=== PATIENT | female | born 1945 | race Caucasian/White ===

== ENCOUNTER 2019-03-25 16:45 | Inpatient (IN) | payer OTHER ==
[~2019-03-25] VITALS: Ht 162.6 cm; Wt 87.1 kg
[2019-03-25 16:52] VITALS: BP_SYST 101
[2019-03-25 17:46] LABS: BILIRUBIN,URINE NEGATIVE (NEGATIVE); BLOOD, URINE NEGATIVE (NEGATIVE); CLARITY/URINE CLEAR (CLEAR); COLOR,URINE YELLOW (YELLOW); GLUCOSE,URINE NEGATIVE (NEGATIVE); KETONES,URINE NEGATIVE (NEGATIVE); LEUKOCYTE ESTERASE ,URINE 1+ (NEGATIVE); NITRITE, URINE NEGATIVE (NEGATIVE); PROTEIN URINE NEGATIVE (NEGATIVE); UROBILINOGEN,URINE 0.2 (0.2-1.0)
[2019-03-25 17:59] LABS: RBC,URINE 0-3 /HPF (0-3)
[2019-03-25 18:00] LABS: BASOPHILS % (AUTO) 0.6 % (0.0-2.0); EOSINOPHILS % (AUTO) 0.4 % (0.0-4.0); HEMATOCRIT 31.7 % (36-48); LYMPHOCYTES # (AUTO) 2.1 K/uL (1.0-5.5); LYMPHOCYTES % (AUTO) 28.8 % (20.5-51.5); MEAN CORPUSCULAR HEMOGLOBIN 29 pg (27-31); MEAN CORPUSCULAR HGB CONC 32 % (32-36); MEAN CORPUSCULAR VOLUME 92 fL (79.0-98.0); MONOCYTES # (AUTO) 0.7 K/uL (0.0-1.0); MONOCYTES % (AUTO) 10.2 % (1.7-9.3); NEUTROPHILS # (AUTO) 4.4 K/uL (1.8-7.7); PLATELET COUNT (AUTO) 211 K/uL (130-430); RED BLOOD CELL COUNT(AUTO) 3.45 MIL/uL (4.2-6.2); RED CELL DISTRIBUTION WIDTH 21.8 % (9.0-15.0); WHITE BLOOD COUNT (AUTO) 7.3 K/uL (4.8-10.8)
[2019-03-25 18:00] LABS: BACTERIA,URINE MODERATE /HPF (None Seen); FINE GRANULAR CASTS,URINE 0-10 /LPF (None Seen); MUCUS,URINE 1+ /LPF (None Seen)
[2019-03-25 18:02] LABS: BARBITURATE, URINE NEGATIVE (NEG <=200); BENZODIAZEPINE, URINE NEGATIVE (NEG <=150); CANNABINOID, URINE NEGATIVE (NEG <=50); COCAINE, URINE NEGATIVE (NEG <=150); METHAMPHETAMINES SCREEN,URINE NEGATIVE (NEG <=500); OPIATE, URINE NEGATIVE (NEG <=100); PHENCYCLIDINE SCREEN,URINE NEGATIVE (NEG <=25); UR TRICYCLIC ANTIDEPRESSANTS NEGATIVE (NEG <=300); URINE AMPHETAMINE NEGATIVE (NEG <=500); URINE METHADONE NEGATIVE (NEG <=200); URINE OXYCODONE SCREEN NEGATIVE (NEG <=100); URINE PROPOXYPHENE SCREEN NEGATIVE (NEG <=300)
[2019-03-25] MEDS ORDERED: cefTRIAXone 1 GM IVPB PREMIX 50 ML IV ONE ×2 (18:30)
[2019-03-25 18:32] LABS: INR 1.7 (0.8-1.2); PROTHROMBIN TIME 17.4 SECS (9.5-12.5)
[2019-03-25 18:52] LABS: CALCIUM 7.5 mg/dL (8.4-11.0); CREATININE 1.03 mg/dL (0.55-1.30); GLUCOSE 109 mg/dL (70-99); UREA NITROGEN, BLOOD 19 mg/dL (8-21)
[2019-03-25 19:08] LABS: ALANINE AMINOTRANSFERASE 24 U/L (12-78); ALBUMIN 1.8 g/dL (3.4-4.8); ASPARTATE AMINOTRANSFERASE 26 U/L (10-37); FREE T4 (FREE THYROXINE) 1.3 ng/dL (0.6-1.6); TOTAL BILIRUBIN 0.8 mg/dL (0.0-1.0)
[2019-03-25 19:10] LABS: ALCOHOL, BLOOD < 3 mg/dL (<10); CHLORIDE 112 mmol/L (98-107); POTASSIUM 4.1 mmol/L (3.5-5.1); SODIUM SERUM 144 mmol/L (136-145)
[2019-03-25 19:11] LABS: ANION GAP 7 (5-15)
[2019-03-25] MEDS ORDERED: LACTULOSE 20 GM/30 ML UDC PO ONE ×2 (19:15→22:00)
[2019-03-25 20:25] VITALS: BP_SYST 105
[2019-03-25] MEDS ORDERED: ONDANSETRON HCL 4 MG/2 ML VIAL IVP PRN (21:45)
[2019-03-25] MEDS ORDERED: ALBUTEROL SULFATE 0.083% 2.5 MG/3 ML VIAL.NEB INH PRN (21:45)
[2019-03-25 21:52] VITALS: BP_SYST 105
[2019-03-25] MEDS ORDERED: RIFAXIMIN 550 MG TABLET PO ONE (22:00)
[2019-03-25 23:45] VITALS: BP_SYST 116
[2019-03-26 00:16] VITALS: BP_SYST 95
[2019-03-26 07:10] LABS: BASOPHILS % (AUTO) 0.7 % (0.0-2.0); EOSINOPHILS # (AUTO) 0.1 K/uL (0.0-0.4); HEMATOCRIT 29.7 % (36-48); HEMOGLOBIN 9.5 g/dL (12.0-16.0); LYMPHOCYTES # (AUTO) 1.6 K/uL (1.0-5.5); LYMPHOCYTES % (AUTO) 29.4 % (20.5-51.5); MEAN CORPUSCULAR HEMOGLOBIN 29 pg (27-31); MEAN CORPUSCULAR HGB CONC 32 % (32-36); MEAN CORPUSCULAR VOLUME 92 fL (79.0-98.0); MONOCYTES # (AUTO) 0.5 K/uL (0.0-1.0); NEUTROPHILS # (AUTO) 3.2 K/uL (1.8-7.7); NEUTROPHILS % (AUTO) 58.9 % (40.0-70.0); PLATELET COUNT (AUTO) 139 K/uL (130-430); RED BLOOD CELL COUNT(AUTO) 3.24 MIL/uL (4.2-6.2)
[2019-03-26 07:21] LABS: WHITE BLOOD COUNT (AUTO) 5.4 K/uL (4.8-10.8)
[2019-03-26 07:25] LABS: ALANINE AMINOTRANSFERASE 25 U/L (12-78); ALBUMIN 1.6 g/dL (3.4-4.8); ASPARTATE AMINOTRANSFERASE 28 U/L (10-37); CALCIUM 7.8 mg/dL (8.4-11.0); CHLORIDE 111 mmol/L (98-107); CREATININE 1.12 mg/dL (0.55-1.30); GLUCOSE 85 mg/dL (70-99); POTASSIUM 3.6 mmol/L (3.5-5.1); SODIUM SERUM 141 mmol/L (136-145); TOTAL BILIRUBIN 0.7 mg/dL (0.0-1.0); UREA NITROGEN, BLOOD 20 mg/dL (8-21)
[2019-03-26 07:29] LABS: ANION GAP < 3 (5-15)
[2019-03-26 07:45] VITALS: BP_SYST 107
[2019-03-26] MEDS: LACTULOSE 20 GM/30 ML UDC PO SCH ×4 (09:35→21:00)
[2019-03-26] MEDS: RIFAXIMIN 550 MG TABLET PO SCH ×2 (09:35→21:19)
[2019-03-26] MEDS ORDERED: FUROSEMIDE 40 MG/4 ML VIAL IVP ONE (09:45)
[2019-03-26] MEDS ORDERED: POTA20TA83 PO (10:40)
[2019-03-26] MEDS ORDERED: FURO-150 PO (10:40)
[2019-03-26] MEDS ORDERED: LEVO200T PO (10:40)
[2019-03-26] MEDS ORDERED: LEVOTHYROXINE SODIUM 0.1 MG TABLET PO ONE (11:00)
[2019-03-26 11:20] VITALS: BP_SYST 126
[2019-03-26 15:24] VITALS: BP_SYST 143
[2019-03-26 17:03] LABS: TOTAL IRON BIND. CAPACITY 122 ug/dL (250-450)
[2019-03-26] MEDS: FUROSEMIDE 40 MG/4 ML VIAL IVP SCH (21:00)
[2019-03-26] MEDS ORDERED: cefTRIAXone 1 GM IVPB PREMIX 50 ML IV SCH (21:00)
[2019-03-26 21:02] VITALS: BP_SYST 109
[2019-03-27 00:44] VITALS: BP_SYST 98
[2019-03-27 06:12] LABS: BASOPHILS % (AUTO) 0.6 % (0.0-2.0); EOSINOPHILS # (AUTO) 0.1 K/uL (0.0-0.4); EOSINOPHILS % (AUTO) 0.9 % (0.0-4.0); HEMOGLOBIN 10.1 g/dL (12.0-16.0); LYMPHOCYTES # (AUTO) 3.3 K/uL (1.0-5.5); LYMPHOCYTES % (AUTO) 37.4 % (20.5-51.5); MEAN CORPUSCULAR HEMOGLOBIN 30 pg (27-31); MEAN CORPUSCULAR HGB CONC 33 % (32-36); MEAN CORPUSCULAR VOLUME 91 fL (79.0-98.0); MONOCYTES # (AUTO) 0.7 K/uL (0.0-1.0); MONOCYTES % (AUTO) 7.9 % (1.7-9.3); NEUTROPHILS # (AUTO) 4.7 K/uL (1.8-7.7); NEUTROPHILS % (AUTO) 53.2 % (40.0-70.0); PLATELET COUNT (AUTO) 213 K/uL (130-430); RED CELL DISTRIBUTION WIDTH 20.8 % (9.0-15.0); WHITE BLOOD COUNT (AUTO) 8.9 K/uL (4.8-10.8)
[2019-03-27] MEDS ORDERED: LEVOTHYROXINE SODIUM 0.1 MG TABLET PO SCH (07:00)
[2019-03-27 07:01] LABS: ALANINE AMINOTRANSFERASE 28 U/L (12-78); ALBUMIN 1.9 g/dL (3.4-4.8); ASPARTATE AMINOTRANSFERASE 32 U/L (10-37); CALCIUM 7.8 mg/dL (8.4-11.0); CHLORIDE 108 mmol/L (98-107); CREATININE 1.07 mg/dL (0.55-1.30); GLUCOSE 83 mg/dL (70-99); POTASSIUM 3.9 mmol/L (3.5-5.1); SODIUM SERUM 139 mmol/L (136-145); TOTAL BILIRUBIN 0.8 mg/dL (0.0-1.0); UREA NITROGEN, BLOOD 19 mg/dL (8-21)
[2019-03-27 07:06] LABS: INR 1.8 (0.8-1.2); PROTHROMBIN TIME 17.9 SECS (9.5-12.5)
[2019-03-27 07:08] LABS: ANION GAP < 3 (5-15)
[2019-03-27 07:45] VITALS: BP_SYST 122
[2019-03-27 08:10] LABS: HEPATITIS A AB, IgM Negative (Negative); HEPATITIS B CORE AB, IgM Negative (Negative); HEPATITIS B SURFACE AG Negative (Negative)
[2019-03-27] MEDS: LACTULOSE 20 GM/30 ML UDC PO SCH ×2 (09:00→13:00)
[2019-03-27] MEDS: RIFAXIMIN 550 MG TABLET PO SCH (10:12)
[2019-03-27] MEDS: FUROSEMIDE 40 MG/4 ML VIAL IVP SCH (10:13)
[2019-03-27 12:00] VITALS: BP_SYST 112
[2019-03-27 13:06] LABS: AFP, TUMOR MARKER 3.1 ng/mL (0.0-8.3); FERRITIN 34 ng/mL (15-150)
[2019-03-27 14:29] VITALS: BP_SYST 112
[2019-03-27] MEDS ORDERED: SPIR100T PO ×2 (14:40→14:44)
[2019-03-27] MEDS ORDERED: LACT10SO7 PO (14:44)
[2019-03-28 05:10] LABS: ALPHA-1-ANTITRYPSIN, S 101 mg/dL (90-200); CERULOPLASMIN 10.8 mg/dL (19.0-39.0)
[2019-03-28 13:07] LABS: ANTI-SMOOTH MUSCLE AB 11 Units (0-19)
[2019-03-28 19:13] LABS: ANTI NUCLEAR AB WITH REFLEX Negative (Negative)
[2019-03-29 13:07] LABS: LIVER-KIDNEY MICROSOMAL AB 1.7 Units (0.0-20.0)
== END 2019-03-27 17:48 | disposition home or self-care (01) | DRG 442 ==
LOC: SED 16:45 → STU 19:36 → SMU 20:16 → STU 20:16 → SMU 03-26 15:01
PROVIDERS: ADMIT Internal Medicine; ATTEND Internal Medicine
DX: K72.90 Hepatic failure, unspecified without coma (principal); N39.0 Urinary tract infection, site not specified; R18.8 Other ascites; E44.0 Moderate protein-calorie malnutrition; R65.10 Systemic inflammatory response syndrome (SIRS) of non-infectious origin without acute organ dysfunction; K74.60 Unspecified cirrhosis of liver; Z96.643 Presence of artificial hip joint, bilateral; E88.09 Other disorders of plasma-protein metabolism, not elsewhere classified; Z79.899 Other long term (current) drug therapy; Z88.0 Allergy status to penicillin; Z90.49 Acquired absence of other specified parts of digestive tract
CPT/HCPCS: 36415; 70450-TC; 71045; 76700-TC; 80053; 80074; 80307; 81000-TC; 82103; 82105; 82140-TC; 82390; 82728; 83516; 83540-TC; 83550-TC; 83605; 83880; 84439; 84484; 85025; 85610-TC; 86038; 86376; 87040-TC; 87086; 92507-GN; 92523; 93005; 93970; 97110-GP; 97116-GP; 97530-GP; 99285; G0378; G0482; J0696; J1940

== ENCOUNTER 2019-05-01 14:36 | Inpatient (IN) | payer OTHER ==
[2019-05-01] VITALS (7 sets, daily range): BP systolic 83–119
[~2019-05-01] VITALS: Ht 162.6 cm; Wt 88.0 kg
[~2019-05-01 14:36] MED LIST: FURO-150 PO; LACT10SO7 PO; LEVO200T PO; POTA20TA83 PO; SPIR100T PO
--- NOTE | 2019-05-01 14:50 | NUR ---
BROUGHT BACK TO BED #3 VIA WHEELCHAIR AND TRIAGED. REPORT GIVEN TO TWAN
--- NOTE | 2019-05-01 15:00 | NUR ---
pt was bib her daughter from home w/ c/o of extremity swelling. Pt is AAO x 3. Is unable to ambulate at the moment d/t increasing swelling. Will continue to monitor.
--- NOTE | 2019-05-01 15:02 | NUR ---
ER at bedside examining patient.
[2019-05-01] MEDS ORDERED: FUROSEMIDE 40 MG/4 ML VIAL IVP ONE (15:45)
--- NOTE | 2019-05-01 15:52 | NUR ---
# 22 gauge angiocath placed to right hand. Use of asceptic technique. Opsite placed over site. Blood return noted. Blood for lab drawn from site. Flushed with 10 cc of normal saline. No evidence of infiltration noted. Patient tolerated well.
[2019-05-01 16:17] LABS: INR 1.7 (0.8-1.2)
[2019-05-01 16:20] LABS: PROTHROMBIN TIME 17.1 SECS (9.5-12.5)
--- NOTE | 2019-05-01 16:20 | NUR ---
Urine sample obtained and sent to the lab
[2019-05-01 16:28] LABS: BASOPHILS % (AUTO) 0.2 % (0.0-2.0); EOSINOPHILS % (AUTO) 0.3 % (0.0-4.0); HEMATOCRIT 28.2 % (36-48); HEMOGLOBIN 9.1 g/dL (12.0-16.0); LYMPHOCYTES # (AUTO) 1.2 K/uL (1.0-5.5); LYMPHOCYTES % (AUTO) 17.4 % (20.5-51.5); MEAN CORPUSCULAR HEMOGLOBIN 30 pg (27-31); MEAN CORPUSCULAR HGB CONC 32 % (32-36); MEAN CORPUSCULAR VOLUME 92 fL (79.0-98.0); MONOCYTES # (AUTO) 0.4 K/uL (0.0-1.0); MONOCYTES % (AUTO) 5.8 % (1.7-9.3); NEUTROPHILS # (AUTO) 5.1 K/uL (1.8-7.7); NEUTROPHILS % (AUTO) 76.3 % (40.0-70.0); PLATELET COUNT (AUTO) 106 K/uL (130-430); RED BLOOD CELL COUNT(AUTO) 3.06 MIL/uL (4.2-6.2); RED CELL DISTRIBUTION WIDTH 16.1 % (9.0-15.0); WHITE BLOOD COUNT (AUTO) 6.7 K/uL (4.8-10.8)
[2019-05-01 16:31] LABS: ANION GAP 7 (5-15); CALCIUM 8.4 mg/dL (8.4-11.0); CHLORIDE 112 mmol/L (98-107); CREATININE 4.44 mg/dL (0.55-1.30); GLUCOSE 91 mg/dL (70-99); SODIUM SERUM 134 mmol/L (136-145); UREA NITROGEN, BLOOD 29 mg/dL (8-21)
[2019-05-01 16:43] LABS: ALANINE AMINOTRANSFERASE 36 U/L (12-78); ALBUMIN 1.7 g/dL (3.4-4.8); ASPARTATE AMINOTRANSFERASE 59 U/L (10-37); TOTAL BILIRUBIN 1.2 mg/dL (0.0-1.0)
[2019-05-01 16:44] LABS: POTASSIUM 7.1 mmol/L (3.5-5.1)
[2019-05-01 16:56] LABS: BILIRUBIN,URINE NEGATIVE (NEGATIVE); CLARITY/URINE HAZY (CLEAR); COLOR,URINE YELLOW (YELLOW); GLUCOSE,URINE NEGATIVE (NEGATIVE); KETONES,URINE NEGATIVE (NEGATIVE); LEUKOCYTE ESTERASE ,URINE 2+ (NEGATIVE); NITRITE, URINE NEGATIVE (NEGATIVE); PROTEIN URINE NEGATIVE (NEGATIVE); UROBILINOGEN,URINE 0.2 (0.2-1.0)
[2019-05-01] MEDS ORDERED: DEXTROSE 50% JECT 50 ML DISP.SYRIN IVP ONE (17:00)
[2019-05-01] MEDS ORDERED: SODIUM BICARBONATE 8.4% JECT 50 MEQ/50 ML SYRINGE IVP ONE (17:00)
[2019-05-01] MEDS ORDERED: INSULIN REGULAR, HUMAN 10 UNITS/0.1 ML INJ IVP ONE (17:00)
[2019-05-01 17:06] LABS: BLOOD, URINE TRACE (NEGATIVE)
--- NOTE | 2019-05-01 17:15 | NUR ---
Bicard 50 mEq, D50 25mg, and regular insulin 8 units given for K 7.1. Will reassess.
[2019-05-01] MEDS ORDERED: INSULIN REGULAR, HUMAN 10 UNITS/0.1 ML INJ ONE (17:20)
--- NOTE | 2019-05-01 17:23 | NUR ---
Medication reconciliation completed with information provided by the pt's daughter. Any prior medication reconciliation on file was reviewed and corrected.
[2019-05-01 17:28] LABS: BACTERIA,URINE MANY /HPF (None Seen); WBC,URINE 20-50 /HPF (0-3)
[2019-05-01] MEDS ORDERED: LACTULOSE 20 GM/30 ML UDC PO ONE (17:45)
[2019-05-01] MEDS ORDERED: SODIUM POLYSTYRENE SULFONATE 15 GM/60 ML UDBTL PO ONE (18:15)
[2019-05-01] MEDS ORDERED: LEVOFLOXACIN 250 MG/D5W 50 ML IV ONE ×2 (18:15→21:30)
[2019-05-01] MEDS ORDERED: FUROSEMIDE 100 MG in D5W 90 ML IV ONE (18:15)
--- NOTE | 2019-05-01 19:30 | NUR ---
Patient will be admitted to care of ICU 8. A Will go to room . Belongings list completed. bedside report given to Julian BOURNE. IV is on the RAC 22g patient and flushing well. Pt left in stable condition
--- NOTE | 2019-05-01 19:35 | NUR ---
PM SHIFT ASSESSMENT Pt is alert and oriented. Pt is on RA, RR even and unlabored. IV to LAC22g, no signs of infiltration noted. Safety precautions in place, call light within reach. Will continue to monitor.
[2019-05-01] MEDS: SODIUM BICARBONATE 8.4% JECT 50 MEQ/50 ML SYRINGE IVP SCH ×3 (20:58→23:09)
[2019-05-01] MEDS: LACTULOSE 20 GM/30 ML UDC PO SCH (21:09)
--- NOTE | 2019-05-01 21:30 | NUR ---
DR FREDDIE Yost notified regarding Lasix order. Orders received. 1. Continue Lasix drip @ 8mg/hr 2. Albuterol Sulfate 0.083% 2.5mg/3ml vial. neb INH Q 6 Hr PRN wheezing/ SOB.
--- NOTE | 2019-05-01 21:50 | NUR ---
CONSULTATION PAGED/CALLED Reason for Consultation: Liver Cirrhosis Person Who was Notified: Eunice lo Consulting Physician: Dr Yost Occupational Medicine Specialist Specialty: Nephro Ordering Physician: Dr Yost
[2019-05-01 22:07] LABS: CALCIUM 8.2 mg/dL (8.4-11.0); CHLORIDE 114 mmol/L (98-107); CREATININE 4.33 mg/dL (0.55-1.30); GLUCOSE 63 mg/dL (70-99); SODIUM SERUM 138 mmol/L (136-145); UREA NITROGEN, BLOOD 29 mg/dL (8-21)
[2019-05-01 22:12] LABS: ANION GAP 6 (5-15)
[2019-05-01] MEDS ORDERED: FUROSEMIDE 40 MG/4 ML VIAL ONE (22:17)
[2019-05-01 22:20] LABS: POTASSIUM 6.7 mmol/L (3.5-5.1)
--- NOTE | 2019-05-01 22:22 | NUR ---
CONSULTATION PAGED/CALLED Reason for Consultation: lIVER Cirrhosis Person Who was Notified: Magui lo Consulting Physician: Dr Davison Jet Aircraft Servicer Specialty: GI Ordering Physician: Dr Yost
[2019-05-01] MEDS ORDERED: SODIUM POLYSTYRENE SULFONATE 15 GM/60 ML UDBTL PO SCH (23:45)
--- NOTE | 2019-05-01 23:45 | NUR ---
PADRON CATH: # 16 FR Padron catheter with 10 cc bulb inserted with use of sterile technique. Bulb inflated with 10 cc sterile water. Immediate return of 15cc cloudy yellow urine noted. Bedside drainage bag placed below level of bladder. Pt tolerated procedure well.
[2019-05-02] VITALS (25 sets, daily range): BP systolic 80–110
[2019-05-02] MEDS: SODIUM BICARBONATE 8.4% JECT 50 MEQ/50 ML SYRINGE IVP SCH ×2 (00:15→01:09)
--- NOTE | 2019-05-02 00:17 | NUR ---
DR FREDDIE Yost notified regarding low SBP. Orders received. 1. Start Levophed to keep SBP greater than 90.
--- NOTE | 2019-05-02 00:50 | NUR ---
IV PLACEMENT: # 20 gauge angiocath placed to RAC. Use of asceptic technique. Opsite placed over site. Blood return noted. Flushed with 10 cc of normal saline. No evidence of infiltration noted. Patient tolerated well.
[2019-05-02] MEDS: NOREPINEPHRINE BITARTRATE 4 MG in D5W 246 ML IV PRN ×2 (01:11→22:15)
[2019-05-02] MEDS ORDERED: NOREPINEPHRINE 4 MG/4 ML VIAL IV ONE ×2 (01:11→21:08)
[2019-05-02] MEDS ORDERED: SODIUM BICARBONATE 8.4% JECT 50 MEQ/50 ML SYRINGE ONE (01:18)
[2019-05-02] MEDS ORDERED: ALBUTEROL SULFATE 0.083% 2.5 MG/3 ML VIAL.NEB INH PRN (02:00)
[2019-05-02 05:32] LABS: BASOPHILS % (AUTO) 0.3 % (0.0-2.0); EOSINOPHILS % (AUTO) 0.3 % (0.0-4.0); HEMATOCRIT 26.3 % (36-48); HEMOGLOBIN 8.5 g/dL (12.0-16.0); LYMPHOCYTES # (AUTO) 1.2 K/uL (1.0-5.5); LYMPHOCYTES % (AUTO) 21.5 % (20.5-51.5); MEAN CORPUSCULAR HEMOGLOBIN 30 pg (27-31); MEAN CORPUSCULAR HGB CONC 32 % (32-36); MEAN CORPUSCULAR VOLUME 92 fL (79.0-98.0); MONOCYTES # (AUTO) 0.3 K/uL (0.0-1.0); MONOCYTES % (AUTO) 5.9 % (1.7-9.3); NEUTROPHILS # (AUTO) 4.1 K/uL (1.8-7.7); PLATELET COUNT (AUTO) 86 K/uL (130-430); RED BLOOD CELL COUNT(AUTO) 2.85 MIL/uL (4.2-6.2); RED CELL DISTRIBUTION WIDTH 16.6 % (9.0-15.0); WHITE BLOOD COUNT (AUTO) 5.8 K/uL (4.8-10.8)
[2019-05-02 05:56] LABS: ALANINE AMINOTRANSFERASE 31 U/L (12-78); ALBUMIN 1.5 g/dL (3.4-4.8); ANION GAP 7 (5-15); ASPARTATE AMINOTRANSFERASE 58 U/L (10-37); CALCIUM 8.4 mg/dL (8.4-11.0); CHLORIDE 116 mmol/L (98-107); CREATININE 4.46 mg/dL (0.55-1.30); GLUCOSE 106 mg/dL (70-99); SODIUM SERUM 143 mmol/L (136-145); TOTAL BILIRUBIN 1.2 mg/dL (0.0-1.0); UREA NITROGEN, BLOOD 29 mg/dL (8-21)
[2019-05-02 05:59] LABS: POTASSIUM 6.4 mmol/L (3.5-5.1)
[2019-05-02] MEDS ORDERED: FUROSEMIDE 100 MG in D5W 90 ML IV SCH ×3 (06:00→18:00)
[2019-05-02] MEDS: LEVOTHYROXINE SODIUM 0.15 MG TABLET PO SCH (06:19)
--- NOTE | 2019-05-02 07:25 | NUR ---
ENDORSEMENT Pt care endorsed to TAYLA Babin using nursing SBAR.
--- NOTE | 2019-05-02 07:30 | NUR ---
Opening Note Received plan of care via sbar from endorsing nurse Rachna BOURNE.
[2019-05-02] MEDS ORDERED: ALBUMIN HUMAN 25% 50 ML IV SCH (08:00)
[2019-05-02] MEDS ORDERED: SODIUM POLYSTYRENE SULFONATE 15 GM/60 ML UDBTL PO ONE ×2 (09:15→10:30)
--- NOTE | 2019-05-02 09:30 | NUR ---
Unable to administer meds due to availability in [facility]. Contacted pharmacy for assistance.
--- NOTE | 2019-05-02 10:01 | NUR ---
Nutrition Update Asaf Scale 14 noted. Pt admitted for ARF, hyperkalemia, liver cirrhosis. Diet: 2 gm Na BMI: 35.4 kg/m2 RD to follow per nutrition care standards.
--- NOTE | 2019-05-02 10:40 | NUR ---
CONSULTATION PAGED/CALLED Reason for Consultation: PLACEMENT OF HEMODIALYSIS ACCESS Person Who was Notified: JAMISON Consulting Physician: DR CISNEROS Principal Java Software Engineer Specialty: GEN SURG Ordering Physician: DR FRAZIER
[2019-05-02] MEDS: LACTULOSE 20 GM/30 ML UDC PO SCH ×4 (11:05→20:55)
[2019-05-02] MEDS: ALBUMIN HUMAN 25% 50 ML IV SCH ×6 (11:06→23:52)
--- NOTE | 2019-05-02 11:20 | NUR ---
Patient iv sites both occluded. Unable to flush either iv sites. Informed my charge nurse for assistance.
--- NOTE | 2019-05-02 11:47 | NUR ---
Called Dr. Huber and left message for call back in exchange.
--- NOTE | 2019-05-02 14:26 | NUR ---
Picc line nurse at bedside.
[2019-05-02] MEDS: LEVOFLOXACIN 250 MG/D5W 50 ML IV SCH (17:52)
--- NOTE | 2019-05-02 19:25 | NUR ---
PM SHIFT ASSESSMENT Pt is alert and oriented. Pt is on RA, RR even and unlabored. PICC to MARIO with IVF infusing, no signs of infiltration noted. Paula catheter in place, draining to gravity. Safety precautions in place, call light within reach. Will continue to monitor.
--- NOTE | 2019-05-02 19:35 | NUR ---
Closing Note: Provided plan of care via sbar to receiving nurse Rachna BOURNE.
[2019-05-02] MEDS ORDERED: HEPARIN SODIUM,PORCINE 5000 UNITS/ML VIAL ONE (19:52)
--- NOTE | 2019-05-02 19:55 | NUR ---
DIALYSIS CATHETER Dr. Dozier here for dialysis catheter placement. Time out done, right patient, right procedure, right site, allergies noted. Sterile field secured.
--- NOTE | 2019-05-02 21:15 | NUR ---
Dialysis nurse here for patients first dialysis session. Consent signed and in chart.
[2019-05-03] VITALS (24 sets, daily range): BP systolic 89–120
--- NOTE | 2019-05-03 00:35 | NUR ---
First dialysis session complete, 1,750ml out. Pt tolerated procedure well. Will continue to monitor.
[2019-05-03] MEDS: ALBUMIN HUMAN 25% 50 ML IV SCH ×2 (02:24→04:27)
[2019-05-03] MEDS: NOREPINEPHRINE BITARTRATE 4 MG in D5W 246 ML IV PRN ×4 (02:25→16:57)
[2019-05-03] MEDS ORDERED: NOREPINEPHRINE 4 MG/4 ML VIAL IV ONE ×2 (02:25→07:09)
[2019-05-03] MEDS ORDERED: LEVOTHYROXINE SODIUM 0.1 MG TABLET PO SCH (06:00)
[2019-05-03 06:13] LABS: ALANINE AMINOTRANSFERASE 24 U/L (12-78); ANION GAP 8 (5-15); ASPARTATE AMINOTRANSFERASE 34 U/L (10-37); CALCIUM 8.2 mg/dL (8.4-11.0); CHLORIDE 110 mmol/L (98-107); CREATININE 3.15 mg/dL (0.55-1.30); GLUCOSE 153 mg/dL (70-99); POTASSIUM 3.8 mmol/L (3.5-5.1); SODIUM SERUM 143 mmol/L (136-145); TOTAL BILIRUBIN 1.4 mg/dL (0.0-1.0); UREA NITROGEN, BLOOD 16 mg/dL (8-21)
[2019-05-03] MEDS: LEVOTHYROXINE SODIUM 0.15 MG TABLET PO SCH (06:44)
--- NOTE | 2019-05-03 07:20 | NUR ---
ENDORSEMENT Pt care endorsed to TAYLA Babin using nursing SBAR.
--- NOTE | 2019-05-03 07:43 | NUR ---
Opening Note: Received plan of care via sbar from endorsing nurse Rachna BOURNE.
[2019-05-03 07:47] LABS: BASOPHILS % (AUTO) 0.2 % (0.0-2.0); EOSINOPHILS % (AUTO) 0.1 % (0.0-4.0); LYMPHOCYTES # (AUTO) 0.9 K/uL (1.0-5.5); LYMPHOCYTES % (AUTO) 25.7 % (20.5-51.5); MEAN CORPUSCULAR HEMOGLOBIN 30 pg (27-31); MEAN CORPUSCULAR HGB CONC 33 % (32-36); MEAN CORPUSCULAR VOLUME 89 fL (79.0-98.0); MONOCYTES # (AUTO) 0.3 K/uL (0.0-1.0); MONOCYTES % (AUTO) 7.7 % (1.7-9.3); NEUTROPHILS # (AUTO) 2.2 K/uL (1.8-7.7); NEUTROPHILS % (AUTO) 66.3 % (40.0-70.0); PLATELET COUNT (AUTO) 50 K/uL (130-430); RED BLOOD CELL COUNT(AUTO) 2.18 MIL/uL (4.2-6.2); RED CELL DISTRIBUTION WIDTH 16.1 % (9.0-15.0); WHITE BLOOD COUNT (AUTO) 3.4 K/uL (4.8-10.8)
[2019-05-03 07:52] LABS: HEMOGLOBIN 6.5 g/dL (12.0-16.0)
[2019-05-03 07:53] LABS: HEMATOCRIT 19.4 % (36-48)
--- NOTE | 2019-05-03 07:56 | NUR ---
Received call from Lab for critical values. Called Dr. Huber left message for exchange for return call.
--- NOTE | 2019-05-03 08:15 | NUR ---
Received call back from Dr. Huber. Received orders for 1 unit of PRBC and morphine 2 mg IVP push PRN.
[2019-05-03] MEDS: LACTULOSE 20 GM/30 ML UDC PO SCH ×4 (08:44→20:58)
[2019-05-03] MEDS: LEVOFLOXACIN 250 MG/D5W 50 ML IV SCH (08:45)
[2019-05-03] MEDS: MORPHINE 2 MG/ML INJ. SYRINGE IVP PRN ×2 (08:57→20:59)
--- NOTE | 2019-05-03 09:08 | NUR ---
CONSULTATION PAGED DR. HOOD CALLED SPOKE TO: MAY CONSULT REASON: SEPSIS DIALED: [phone] ORDERED BY: DR. TORO
--- NOTE | 2019-05-03 12:45 | NUR ---
Stunner And Shackler: See new ICU pt. COMPUTER ARCHITECT introduced self to pt. who stated she was feeling exhausted. COMPUTER ARCHITECT shared with her she will have a rep from her HCP come to see her, but COMPUTER ARCHITECT wanted to check in to see if she was ok for the time being. Pt. did not have any questions or needs at this time.
[2019-05-03] MEDS ORDERED: ONDANSETRON HCL 4 MG/2 ML VIAL IVP PRN (14:30)
--- NOTE | 2019-05-03 14:30 | NUR ---
Called Dr. Huber to report patient feeling nauseous. Received order for zofran 4mg ivp prn.
[2019-05-03] MEDS ORDERED: POTASSIUM CHLORIDE 20 MEQ TAB.PRT.SR PO ONE (14:45)
[2019-05-03] MEDS ORDERED: metroNIDAZOLE 500 mg/NS 100 ML IV ONE (15:00)
--- NOTE | 2019-05-03 15:49 | NUR ---
Nutrition Assessment A - RD reviewed pertinent nutrition-related info via EMR (physician notes/nursing notes/labs/meds/nursing care trends/care activity). Current Diet Order/Nutrition Support: 2 gm Na x1 day Ht: 64"/5'4" Wt: 205#/93 kg IBW: 120#/55 kg Adj IBW (obesity): 141#/64 kg %IBW: 169% UBW: 196# %UBW: 96% BMI: 35.4 kg/m2 (obesity class II) Subjective info: Pt seen resting in bed, visually over-nourished for ht/age, however, noted w/ BUE non-pitting edema, L lower extremity 4+ pitting edema, and R lower extremity 3+ pitting edema per nursing notes. Bedscale wt taken: 206#. Pt reported lousy appetite d/t nausea. RN stated that pt mostly drank milk at breakfast, and cranberry juice at lunch w/ a few bites of fish at lunch. RD encouraged pt to try to improve PO intakes when she is feeling less queasy to maintain lean muscle mass and improve strength. Pt denied any supplement use and chewing/swallowing difficulty. Anthropometrics verified by pt. Per EMR, PO intake records indicate 33% average x3 meals. ESTIMATED NUTRITIONAL NEEDS CALORIES/DAY: 6227-6532 kcal/day (MSJ x 1-1.2 CBW for obesity, geriatric maintenance) PROTEIN/DAY: 38-77 gm/day (0.6-1.2 gm/kg Adj IBW for ARF, geriatric maintenance) FLUID/DAY: Per physician d/t ARF D - Suboptimal PO intakes related to lack of appetite as evidenced by pt report of nausea and poor PO intake records. I - Recommend continuing 2 gm Na diet. Encourage increase PO intakes. M - Monitor appetite and PO intakes w/ goal of pt meeting at least 50% of estimated nutritional needs, labs trending WNL, normal GI function, and skin integrity/wt maintenance E - High Risk: F/U within 2-3 days
--- NOTE | 2019-05-03 15:59 | NUR ---
Dietitian Recommendations * Recommend continuing 2 gm Na diet. * Encourage increase PO intakes. LP, RD Please refer to Nutrition Assessment for details.
[2019-05-03] MEDS ORDERED: cefTRIAXone 1 GM in D5W 50 ML IV SCH (16:00)
--- NOTE | 2019-05-03 19:15 | NUR ---
AT 1915 P.M, RECEIVED NURSING REPORT FROM JACQUIE ALVARADO R.N
--- NOTE | 2019-05-03 19:22 | NUR ---
Closing Note Provided plan of care via sbar to receiving nurse Lou BOURNE.
--- NOTE | 2019-05-03 20:30 | NUR ---
AT 2030 P.M, FINISHED BLOOD TRANSFUSION, NO S/S OF ADVERSE REACTION, ORDERED FOLLOW UP CBC AT 2130 P.M
[2019-05-03 21:49] LABS: HEMATOCRIT 23.9 % (36-48); MEAN CORPUSCULAR HEMOGLOBIN 31 pg (27-31); MEAN CORPUSCULAR HGB CONC 33 % (32-36); RED BLOOD CELL COUNT(AUTO) 2.61 MIL/uL (4.2-6.2); WHITE BLOOD COUNT (AUTO) 3.4 K/uL (4.8-10.8)
[2019-05-03 22:14] LABS: PLATELET COUNT (AUTO) 42 K/uL (130-430)
[2019-05-03 22:15] LABS: MEAN CORPUSCULAR VOLUME 92 fL (79.0-98.0)
[2019-05-03 22:17] LABS: BAND % (MANUAL) 0 % (0-6); BASOPHILS % (MANUAL) 0 % (0-2); EOSINOPHILS % (MANUAL) 0 % (0-7); LYMPHOCYTES % (MANUAL) 23 % (20-46); MONOCYTES % (MANUAL) 3 % (0-11)
--- NOTE | 2019-05-03 22:22 | NUR ---
AFTER BLOOD TRANSFUSION H.b 8.0, Hct. 23.9, PLATELET IS 42, WAS PAGED Dr. TORO, WAITING FOR DOCTOR CALL BACK
--- NOTE | 2019-05-03 23:15 | NUR ---
CONTACTED DR LAMBERT, BURR PICKER FOR DR TORO AND NOTIFIED THAT THE PLATELETS IS DOWN TO 42.ORDERED, REPEAT CBC IN AM WHICH WAS ALREADY ORDERED.
[2019-05-03] MEDS: metroNIDAZOLE 500 mg/NS 100 ML IV SCH (23:52)
[2019-05-04] VITALS (24 sets, daily range): BP systolic 88–124
[2019-05-04] MEDS: NOREPINEPHRINE BITARTRATE 4 MG in D5W 246 ML IV PRN ×2 (01:11→09:30)
[2019-05-04] MEDS: LEVOTHYROXINE SODIUM 0.15 MG TABLET PO SCH (06:19)
[2019-05-04 06:35] LABS: BASOPHILS % (AUTO) 0.1 % (0.0-2.0); HEMATOCRIT 25.2 % (36-48); HEMOGLOBIN 8.5 g/dL (12.0-16.0); LYMPHOCYTES # (AUTO) 0.8 K/uL (1.0-5.5); LYMPHOCYTES % (AUTO) 17.9 % (20.5-51.5); MEAN CORPUSCULAR HEMOGLOBIN 31 pg (27-31); MEAN CORPUSCULAR HGB CONC 34 % (32-36); MEAN CORPUSCULAR VOLUME 91 fL (79.0-98.0); MONOCYTES # (AUTO) 0.3 K/uL (0.0-1.0); MONOCYTES % (AUTO) 6.4 % (1.7-9.3); NEUTROPHILS # (AUTO) 3.6 K/uL (1.8-7.7); NEUTROPHILS % (AUTO) 75.6 % (40.0-70.0); RED BLOOD CELL COUNT(AUTO) 2.77 MIL/uL (4.2-6.2); RED CELL DISTRIBUTION WIDTH 15.9 % (9.0-15.0); WHITE BLOOD COUNT (AUTO) 4.7 K/uL (4.8-10.8)
--- NOTE | 2019-05-04 06:38 | NUR ---
PATIENT IS ALERT, ORIENTED, NIGHT TIME SLEEPING WELL, O2 SAT. 97-99 % WITH ROOM AIR, B.P 90-117/54-77 MMHG, DEPENDED LEVOPHED DRIP 8 MCG/MIN, BILATERAL UPPER EXTREMITY AND BILATERAL LOWER EXTREMITY STILL SWOLLEN, EDEMA ,LEFT ARMS HAD WEEPING, HAD 2 TIMES LOOSE STOOL, RAILS UP, CALL LIGHT IN REACH, KEEP CLEAN, SAFETY, COMFORTABLE SUPPORT ALL TIMES
[2019-05-04 06:57] LABS: ALANINE AMINOTRANSFERASE 20 U/L (12-78); ALBUMIN 2.3 g/dL (3.4-4.8); ANION GAP 9 (5-15); ASPARTATE AMINOTRANSFERASE 34 U/L (10-37); CALCIUM 7.9 mg/dL (8.4-11.0); CHLORIDE 110 mmol/L (98-107); GLUCOSE 122 mg/dL (70-99); POTASSIUM 3.1 mmol/L (3.5-5.1); SODIUM SERUM 141 mmol/L (136-145); UREA NITROGEN, BLOOD 16 mg/dL (8-21)
[2019-05-04 07:08] LABS: PLATELET COUNT (AUTO) 43 K/uL (130-430)
--- NOTE | 2019-05-04 07:10 | NUR ---
Received handoff report from night RN
--- NOTE | 2019-05-04 07:26 | NUR ---
GIVE COMPLETE NURSING REPORT TO DAY SHIFT GRACE Alexander AND TYLER Alexander
--- NOTE | 2019-05-04 07:30 | NUR ---
AM Assessment Pt is alert. On LEVOPHED DRIP 8 MCG/MIN, Bilateral upper and lower edema along with weeping both arms, Side rails up, CALL LIGHT IN REACH.
--- NOTE | 2019-05-04 09:05 | NUR ---
New consult paged to Dr. Crowell, spoke with teresita Gomez.
[2019-05-04] MEDS: LACTULOSE 20 GM/30 ML UDC PO SCH ×4 (10:02→20:18)
[2019-05-04] MEDS: metroNIDAZOLE 500 mg/NS 100 ML IV SCH ×2 (11:48→23:20)
--- NOTE | 2019-05-04 11:50 | NUR ---
DC Paula Visualized Paula displacement. Noticed urine on chucks.
--- NOTE | 2019-05-04 13:45 | NUR ---
PADRON CATH: #16 FR Padron catheter with 10 cc bulb inserted with use of sterile technique. Bulb inflated with 10 cc sterile water. Immediate return of 100 cc clear yellow urine noted. Bedside drainage bag placed below level of bladder. Pt tolerated procedure.
--- NOTE | 2019-05-04 13:45 | NUR ---
Knox Visualized Ky RN place knox cath for pt. Pt tolerated well, immediate return of yellow urine.
--- NOTE | 2019-05-04 15:10 | NUR ---
Second page out to cardiology for Dr. Lieberman, spoke with exchange.
--- NOTE | 2019-05-04 16:01 | NUR ---
Paged Dr. Chen for updates on pt and orders, spoke with exchange.
[2019-05-04] MEDS: CEFEPIME 1 GM in D5W 50 ML IV SCH (17:06)
[2019-05-04] MEDS ORDERED: PHYTONADIONE 10 MG/ML AMP SUBCUT ONE (17:30)
[2019-05-04 17:43] LABS: ANION GAP 6 (5-15); CALCIUM 7.7 mg/dL (8.4-11.0); CHLORIDE 108 mmol/L (98-107); CREATININE 2.72 mg/dL (0.55-1.30); GLUCOSE 137 mg/dL (70-99); SODIUM SERUM 140 mmol/L (136-145); UREA NITROGEN, BLOOD 11 mg/dL (8-21)
[2019-05-04 17:47] LABS: BASOPHILS % (AUTO) 0.1 % (0.0-2.0); HEMATOCRIT 26.5 % (36-48); HEMOGLOBIN 8.8 g/dL (12.0-16.0); LYMPHOCYTES # (AUTO) 0.7 K/uL (1.0-5.5); LYMPHOCYTES % (AUTO) 9.5 % (20.5-51.5); MEAN CORPUSCULAR HEMOGLOBIN 30 pg (27-31); MEAN CORPUSCULAR HGB CONC 33 % (32-36); MEAN CORPUSCULAR VOLUME 91 fL (79.0-98.0); MONOCYTES # (AUTO) 0.4 K/uL (0.0-1.0); MONOCYTES % (AUTO) 5.5 % (1.7-9.3); NEUTROPHILS # (AUTO) 5.9 K/uL (1.8-7.7); NEUTROPHILS % (AUTO) 84.9 % (40.0-70.0); RED BLOOD CELL COUNT(AUTO) 2.93 MIL/uL (4.2-6.2); RED CELL DISTRIBUTION WIDTH 15.9 % (9.0-15.0); WHITE BLOOD COUNT (AUTO) 6.9 K/uL (4.8-10.8)
[2019-05-04 17:52] LABS: POTASSIUM 2.8 mmol/L (3.5-5.1)
[2019-05-04 17:53] LABS: PROTHROMBIN TIME 19.9 SECS (9.5-12.5)
[2019-05-04 18:02] LABS: PLATELET COUNT (AUTO) 45 K/uL (130-430)
--- NOTE | 2019-05-04 18:50 | NUR ---
Dr. Greco notified about positive occult blood, no new orders given.
[2019-05-04] MEDS ORDERED: KCL 40 mEq in 100 mL (PREMIX) 100 ML IV SCH (19:00)
--- NOTE | 2019-05-04 19:00 | NUR ---
End of Shift assessment Pt given perineal care, changed bedding. No complaints of pain. Pt resting comfortably. Bed in the lowest position.
--- NOTE | 2019-05-04 19:15 | NUR ---
Endorsement Hand off report given to maintenance mechanic 2nd shift RN.
--- NOTE | 2019-05-04 19:25 | NUR ---
RECEIVED NURSING REPORT FROM DAY SHIFT TYLER EDWARDS R.N, R.N
[2019-05-04] MEDS: MORPHINE 2 MG/ML INJ. SYRINGE IVP PRN (20:02)
--- NOTE | 2019-05-04 20:10 | NUR ---
AT 2000 P.M, SEE PATIENT FOR PRODUCTION CONTROLLER CONSENT
[2019-05-04] MEDS: HYDROCORTISONE ACETATE 1 SUPP (ANUSOL HC) RC SCH (20:16)
--- NOTE | 2019-05-04 20:50 | NUR ---
AT 2026 P.M, START BLOOD TRANSFUSION FRESH FROZEN PLASMA FIRST UNIT, NO S/S OF ADVERSE REACTION AT THIS TIME
--- NOTE | 2019-05-04 22:07 | NUR ---
AT 2150 P.M, FINISHED BLOOD TRANSFUSION FRESH FROZEN PLASMA FIRST UNIT, NO S/S OF ADVERSE REACTION, AT 2205 P.M START BLOOD TRANSFUSION P-RBC ONE UNIT, NO S/S OF ADVERSE REACTION AT THIS TIME, KEEP CLOSE MONITOR
[2019-05-05] VITALS (25 sets, daily range): BP systolic 72–116
[2019-05-05] MEDS: NOREPINEPHRINE BITARTRATE 4 MG in D5W 246 ML IV PRN ×2 (00:24→08:51)
[2019-05-05] MEDS: MORPHINE 2 MG/ML INJ. SYRINGE IVP PRN (01:19)
--- NOTE | 2019-05-05 01:28 | NUR ---
AT 0050 A.M, FINISHED BLOOD TRANSFUSION OF P-RBC, NO S/S OF ADVERSE REACTION, AT 0103B A.M START BLOOD TRANSFUSION SECOND UNIT FRESH FROZEN PLASMA, NO S/S OF ADVERSE REACTION AT THIS TIME, KEEP CLOSE MONITOR
--- NOTE | 2019-05-05 02:50 | NUR ---
AT 0245 A.M, FINISHED BLOOD TRANSFUSION FRESH FROZEN PLASMA SECOND UNIT, NO S/S OF ADVERSE REACTION, PATIENT IS SLEEPING WELL ON THE BED AT THIS TIME, O2 SAT. 97-99% WITH ROOM AIR, B.P 92/55-119/56 MMHG DEPENDED LEVOPHED DRIP 8 MCG/MIN, NO BLOODY STOOL AT THIS TIME, ALL EXTREMITY PITTING EDEMA, BILATERAL ARM STILL MILD WEEPING, RAILS UP,CALL LIGHT IN REACH, KEEP CLEAN, SAFETY, COMFORTABLE SUPPORT ALL TIMES
[2019-05-05 04:43] LABS: BASOPHILS % (AUTO) 0.2 % (0.0-2.0); EOSINOPHILS % (AUTO) 0.1 % (0.0-4.0); HEMATOCRIT 29.1 % (36-48); HEMOGLOBIN 9.7 g/dL (12.0-16.0); LYMPHOCYTES # (AUTO) 0.6 K/uL (1.0-5.5); LYMPHOCYTES % (AUTO) 11.1 % (20.5-51.5); MEAN CORPUSCULAR HEMOGLOBIN 30 pg (27-31); MEAN CORPUSCULAR HGB CONC 33 % (32-36); MEAN CORPUSCULAR VOLUME 90 fL (79.0-98.0); MONOCYTES # (AUTO) 0.3 K/uL (0.0-1.0); MONOCYTES % (AUTO) 4.7 % (1.7-9.3); NEUTROPHILS # (AUTO) 4.7 K/uL (1.8-7.7); NEUTROPHILS % (AUTO) 83.9 % (40.0-70.0); RED BLOOD CELL COUNT(AUTO) 3.22 MIL/uL (4.2-6.2); RED CELL DISTRIBUTION WIDTH 15.5 % (9.0-15.0); WHITE BLOOD COUNT (AUTO) 5.6 K/uL (4.8-10.8)
[2019-05-05 04:53] LABS: PLATELET COUNT (AUTO) 34 K/uL (130-430)
[2019-05-05 04:57] LABS: INR 1.8 (0.8-1.2); PROTHROMBIN TIME 17.5 SECS (9.5-12.5)
[2019-05-05 05:07] LABS: ALANINE AMINOTRANSFERASE 23 U/L (12-78); ALBUMIN 2.3 g/dL (3.4-4.8); ANION GAP 7 (5-15); ASPARTATE AMINOTRANSFERASE 38 U/L (10-37); CALCIUM 7.7 mg/dL (8.4-11.0); CHLORIDE 109 mmol/L (98-107); CREATININE 2.75 mg/dL (0.55-1.30); GLUCOSE 131 mg/dL (70-99); POTASSIUM 3.2 mmol/L (3.5-5.1); SODIUM SERUM 140 mmol/L (136-145); TOTAL BILIRUBIN 2.3 mg/dL (0.0-1.0); UREA NITROGEN, BLOOD 11 mg/dL (8-21)
--- NOTE | 2019-05-05 05:17 | NUR ---
Paged Dr. Chen s/w Elizabet.
--- NOTE | 2019-05-05 05:58 | NUR ---
Second call for Dr. Chen s/w Elizabet.
[2019-05-05] MEDS: LEVOTHYROXINE SODIUM 0.15 MG TABLET PO SCH (05:59)
--- NOTE | 2019-05-05 06:13 | NUR ---
AT 0454 A.M, RECEIVED CRITICAL LAB RESULT: PLATELET 34, POTASSIUM 3.2, AT 0515 A.M PAGED , AT 0608 A.M, CALL BACK, VERBALIZED : SHE IS LIVER CIRRHOSIS, ORDERED CONSULT Dr. JC, AND GIVE KCL 20 MEQ IVPB X ONCE
--- NOTE | 2019-05-05 06:20 | NUR ---
Hematology consult called: for Dr. Pablo, regarding platelet of 34, ordered by Dr. Chen
--- NOTE | 2019-05-05 06:40 | NUR ---
AT 0620 A.M, PAGED Dr. JC, WAITING FOR DOCTOR CALL BACK
[2019-05-05] MEDS ORDERED: KCL 20 mEq in 100 mL (PREMIX) 100 ML IV SCH (07:00)
--- NOTE | 2019-05-05 07:15 | NUR ---
Endorsement Received report from fast food shift lead nurse.
--- NOTE | 2019-05-05 07:19 | NUR ---
GIVE COMPLETE NURSING REPORT TO DAY SHIFT GRACE Alexander AND TYLER Alexander
[2019-05-05] MEDS: HYDROCORTISONE ACETATE 1 SUPP (ANUSOL HC) RC SCH ×2 (08:11→20:43)
[2019-05-05] MEDS: LACTULOSE 20 GM/30 ML UDC PO SCH ×4 (08:11→20:41)
[2019-05-05] MEDS ORDERED: PHYTONADIONE 10 MG/ML AMP SUBCUT ONE (08:30)
--- NOTE | 2019-05-05 08:30 | NUR ---
AM Assessment Pt is on LEVOPHED DRIP 8 MCG/MIN, Bilateral upper and lower edema along with weeping both arms and legs, Side rails up, CALL LIGHT IN REACH. Pt has no complaints of pain. Side rails up, bed in lowest position, lights turned low.
--- NOTE | 2019-05-05 08:40 | NUR ---
Pt received perineal care for BM. Pt tolerated well.
--- NOTE | 2019-05-05 10:45 | NUR ---
Pt brother at bedside
[2019-05-05] MEDS: metroNIDAZOLE 500 mg/NS 100 ML IV SCH ×2 (11:10→23:07)
--- NOTE | 2019-05-05 11:15 | NUR ---
Provided perineal care for Pt. No complaints of pain.
--- NOTE | 2019-05-05 12:45 | NUR ---
CHG Pt provided CHG, new linen provided. Pt tolerated well. Will continue to monitor.
[2019-05-05] MEDS: CEFEPIME 1 GM in D5W 50 ML IV SCH (14:16)
[2019-05-05] MEDS: MIDODRINE HCL 5 MG TABLET (PROAMATINE) PO SCH ×2 (16:01→20:41)
--- NOTE | 2019-05-05 18:30 | NUR ---
Family Pt's at bedside assisting feeding pt dinner. HOB greater than 40 degrees. Pt tolerating well.
--- NOTE | 2019-05-05 19:24 | NUR ---
follow up consult called doctor Pablo regards on the consult for low plt. count
--- NOTE | 2019-05-05 19:25 | NUR ---
End of Shift Assessment Provided perineal care. Pt tolerated well. Changed bedding. Pt resting comfortably and no acute signs of distress. Pt daughter and brother at bedside. Bed in lowest position, lights on.
--- NOTE | 2019-05-05 19:25 | NUR ---
Endorsement Gave end of shift report to night RN.
--- NOTE | 2019-05-05 19:28 | NUR ---
AT 1920 P.M, RECEIVED NURSING REPORT FROM DAY SHIFT TYLER Alexander, AND PAGE Dr. JC FOR NEW CONSULT, WAITING FOR DOCTOR CALL BACK
--- NOTE | 2019-05-05 21:00 | NUR ---
2nd paged paged for doctor Pablo
--- NOTE | 2019-05-05 21:09 | NUR ---
Dr. JC CALLED, VERBALIZED : I AM SO BUSY, SO I HAVE NOT TIME TO SEE PATIENT, PLEASE CALL KNOW, , AT 2111 P.M, PAGED Dr. LAMBERT, WAITING FOR Dr. LAMBERT CALL BACK
--- NOTE | 2019-05-05 21:10 | NUR ---
paged paged doctor gamez
--- NOTE | 2019-05-05 22:00 | NUR ---
AT 2150 P.M, Dr. LAMBERT CALLED, ORDERED CANCEL HEMATOLOGY CONSULT
[2019-05-06] VITALS (24 sets, daily range): BP systolic 95–116
--- NOTE | 2019-05-06 00:04 | NUR ---
paged paged dr. gamez
[2019-05-06] MEDS: NOREPINEPHRINE BITARTRATE 4 MG in D5W 246 ML IV PRN ×2 (00:12→22:29)
--- NOTE | 2019-05-06 00:40 | NUR ---
AT 0012 PATIENT,S B.P REDUCED TO 84/50 MMHG, RECHECK B.P IS 80/44 MMHG, H.R 55, ORDERED ON LEVOPHED DRIP, KEEP SBP > 90 MMHG
--- NOTE | 2019-05-06 00:55 | NUR ---
2nd paged paged doctor gamez
--- NOTE | 2019-05-06 01:46 | NUR ---
3rd page paged doctor Chen for 3rd time.
--- NOTE | 2019-05-06 01:50 | NUR ---
LEVOPHED Spoke to Dr. Gustavo MD informed at patients BP has dropped and new orders for levophed are needed. okayed order, will carry out. Also informed MD of patients loose stools for past several days and order for flexiseal has been given as well as a CDiff sample.
--- NOTE | 2019-05-06 04:19 | NUR ---
PATIENT HAD 3 TIMES LARGE AMOUNT LOOSE STOOL /DIARRHEA, STOOL COLOR DARK GREEN/ BROWN , AFTER EXPLAINED TO PATIENT, Dr. LAMBERT ORDERED , ON FLEXI-SEAL FOR PATIENT
[2019-05-06] MEDS: LEVOTHYROXINE SODIUM 0.15 MG TABLET PO SCH (06:18)
[2019-05-06 06:53] LABS: BASOPHILS % (AUTO) 0.1 % (0.0-2.0); HEMOGLOBIN 10.2 g/dL (12.0-16.0); LYMPHOCYTES # (AUTO) 1.1 K/uL (1.0-5.5); LYMPHOCYTES % (AUTO) 11.9 % (20.5-51.5); MEAN CORPUSCULAR HEMOGLOBIN 30 pg (27-31); MEAN CORPUSCULAR HGB CONC 33 % (32-36); MEAN CORPUSCULAR VOLUME 91 fL (79.0-98.0); MONOCYTES # (AUTO) 0.5 K/uL (0.0-1.0); MONOCYTES % (AUTO) 5.3 % (1.7-9.3); NEUTROPHILS # (AUTO) 7.3 K/uL (1.8-7.7); NEUTROPHILS % (AUTO) 82.7 % (40.0-70.0); RED BLOOD CELL COUNT(AUTO) 3.42 MIL/uL (4.2-6.2); RED CELL DISTRIBUTION WIDTH 15.6 % (9.0-15.0)
--- NOTE | 2019-05-06 07:01 | NUR ---
SEE PATIENT, NO NEW ORDER AT THIS TIME
[2019-05-06 07:02] LABS: ALANINE AMINOTRANSFERASE 19 U/L (12-78); ALBUMIN 2.1 g/dL (3.4-4.8); ANION GAP 8 (5-15); ASPARTATE AMINOTRANSFERASE 40 U/L (10-37); CALCIUM 7.6 mg/dL (8.4-11.0); CHLORIDE 108 mmol/L (98-107); CREATININE 3.03 mg/dL (0.55-1.30); GLUCOSE 109 mg/dL (70-99); POTASSIUM 3.2 mmol/L (3.5-5.1); SODIUM SERUM 140 mmol/L (136-145); TOTAL BILIRUBIN 2.6 mg/dL (0.0-1.0); UREA NITROGEN, BLOOD 14 mg/dL (8-21)
--- NOTE | 2019-05-06 07:30 | NUR ---
Opening Note: Received plan of care via sbar from endorsing nurse Lou BOURNE.
--- NOTE | 2019-05-06 07:30 | NUR ---
GIVE COMPLETE NURSING REPORT TO DAY SHIFT JENNY Alexander
[2019-05-06 07:38] LABS: WHITE BLOOD COUNT (AUTO) 8.9 K/uL (4.8-10.8)
[2019-05-06 08:50] LABS: PLATELET COUNT (AUTO) 51 K/uL (130-430)
[2019-05-06] MEDS: LACTULOSE 20 GM/30 ML UDC PO SCH ×4 (09:00→22:13)
[2019-05-06] MEDS: MIDODRINE HCL 5 MG TABLET (PROAMATINE) PO SCH ×3 (09:00→22:13)
[2019-05-06] MEDS: HYDROCORTISONE ACETATE 1 SUPP (ANUSOL HC) RC SCH ×2 (09:00→22:13)
--- NOTE | 2019-05-06 11:00 | NUR ---
Dr. Yost at bedside. Received order for hemodialysis
--- NOTE | 2019-05-06 11:32 | NUR ---
WOUND EVALUATION: Late note for 1132 secondary to patient care. Wound Consult received from Dr. Huber. Thank you, Dr. Huber, for the consult. Patient received in a Mike Bed with an Isoflex NOÉ mattress with low air-loss therapy initiated, awake, alert, oriented. Patient is unable to turn in bed independently. Asaf Score is a 14. Past Medical History: Liver Cirrhosis, history of Hepatic Encephalopathy, history of hypothyroidism. Patient admitted for Anasarca. Recent Labs: WBC 8.9, RBC 3.42, hemoglobin 10.2, hematocrit 31.0, platelets 51, potassium 3.2, chloride 108, BUN 14, creatinine 3.03, glucose 109, calcium 7.6, AST 40, ALT 19, serum total protein 4.8, albumin 2.1, PT 17.5, INR 1.8, PTT 41.3. Microbiology: Blood culture results 2 in progress. Urine culture results positive for pseudomonas aeruginosa. MRSA screen results negative. Stool sample positive for occult blood. Intrinsic factors that delay wound healing: Diabetes Mellitus, Hypoalbuminemia. Extrinsic factors that delay wound healing: Decreased mobility. Wound Assessment: 1. Left lateral forearm: Skin tear. Skin tear site has 50% red tissue, 50% yellow tissue with epidermal budding. No odor, scant serous drainage. Periwound intact. Surrounding tissue has ecchymosis. Site measures 5.0 cm x 8.0 cm. Recommend: Cleanse site with normal saline. Apply SurePrep to jc-tear area. Cover with oil emulsion dressing, then non-adhesive foam dressing. Wrap with jocelynn wrap. Perform skin tear care daily, and as needed for dressing soiling or dislodgement. 2. Left medial foot/first metatarsal head: Area of blanchable erythema, present on admission. Recommend: No dressing needed. Continue to monitor site every shift. Offload site at all times. 3. Left medial foot/first metatarsal head, inferior to site 2: Open area of dry flaky skin. Not a wound. Site measures 1.3 cm x 0.5 cm. Recommend: Cleanse feet with mild soap and water. Pat dry. Apply Eucerin cream to bilateral feet. Perform site care twice a day for dry, flaky skin. 4. Left dorsal foot: Closed bulla, white in color. No odor, no drainage. Recommend: No dressing needed. Continue to monitor site every shift. 5. Bilateral feet: Dry, flaky skin, present on admission. Recommend: Cleanse feet with mild soap and water. Pat dry. Apply Eucerin cream to bilateral feet. Perform site care twice a day for dry, flaky skin. 6. Left outer posterior hip: Skin tear on non-bony area. Skin tear site has 100% yellow tissue. No odor, no drainage. Periwound intact. Site measures 3.0 cm x 1.7 cm. Recommend: Cleanse site with normal saline. Apply SurePrep to jc-tear area. Apply Venelex Ointment to skin tear. Cover with foam dressing. Perform wound care daily, and as needed for dressing soiling or dislodgement. Also recommend: Encourage and assist patient as needed with repositioning [id number] only every 2 hours with pillow support and off-load pressure areas with pillows for pressure re-distribution. Offload, elevate and float bilateral heels with one pillow lengthwise under each extremity at all times. Perform skin care and monitor skin integrity Q shift. Apply moisture barrier cream to buttocks and other moisture susceptible areas QID and as needed for soiling. Maintain patient on low air-loss therapy. Addendum: 05/06/19 at 1635 by Josue Chavez RN Addendum: 7. Bilateral upper extremities: 3+ pitting edema, weeping moderate amount of serous fluid. 8. Bilateral lower extremities: 4+ pitting edema, weeping small amount of serous fluid. Recommend: Cleanse extremity is mild soap and water. Pat dry. Cover extremities with inter-dry AG cloth. Wrap with absorbent pads. Change inter-dry AG cloth and absorbent pads daily, and as needed for soiling. Elevate extremities at all times.
[2019-05-06] MEDS: metroNIDAZOLE 500 mg/NS 100 ML IV SCH ×2 (11:33→23:44)
[2019-05-06] MEDS ORDERED: EMOLLIENT COMBINATION NO.73 78 GM CREAM..G. TP ONE ×2 (12:45→13:00)
[2019-05-06] MEDS ORDERED: BALSAM PERU/CASTOR OIL 60 GM OINT...G. TP ONE (12:45)
--- NOTE | 2019-05-06 14:08 | NUR ---
Nutrition F/U RD reviewed pt's current EMR including diet Hx, physician notes, nursing notes, pertinent labs/meds/procedures, care trends and care activity. Current Diet Order: Mechanical soft 2gm Na diet x 1 day Subjective information: Per RN report, pt has not been eating well and seems to have some difficulty chewing food. PO intake remains poor, w/ only 25% intake or less per meal. Per bed huddle discussion, pt received hemodialysis. Pt may benefit from Mechanical soft Renal Standard diet w/ Nepro BID. Megace is also warranted to stimulate appetite. Current PO intake: NEGLIGIBLE 22% average of 3 meals 05/05/19. ESTIMATED NUTRITIONAL NEEDS CALORIES/DAY: 4293-6469 kcal/day (MSJ x 1-1.2 CBW for obesity, geriatric maintenance) PROTEIN/DAY: 77-83 gm/day (1.2-1.3 gm/kg Adj IBW for ARF, geriatric maintenance) FLUID/DAY: Per physician d/t ARF D - Suboptimal PO intakes related to lack of appetite as evidenced by pt report of nausea and poor PO intake records. (*ongoing) I - 1. Recommend Mechanical Soft Renal Standard diet w/ Nepro BID. ONS will provide additional 850 kcal, 38 gm protein daily. 2. Recommend Megace to stimulate appetite. M - Monitor appetite and PO intakes w/ goal of pt meeting at least 50% of estimated nutritional needs, labs trending WNL, normal GI function, and skin integrity/wt maintenance E - High Risk: F/U within 2-3 days
[2019-05-06] MEDS: CEFEPIME 1 GM in D5W 50 ML IV SCH (14:11)
--- NOTE | 2019-05-06 14:14 | NUR ---
Assembly Mechanic recommendation 1. Recommend Mechanical Soft Renal Standard diet w/ Nepro BID. ONS will provide additional 850 kcal, 38 gm protein daily. 2. Recommend Megace to stimulate appetite. AUBREY, RD
--- NOTE | 2019-05-06 14:52 | NUR ---
WOUND EVALUATION: Wound Consult received from Dr. Huber. Thank you, Dr. Kline, for the consult. Patient received in a Mike Bed with an Isoflex NOÉ mattress, awake, alert, confused. Patient is unable to turn in bed independently. Asaf Score is a 15. Past Medical History: CVA, Dementia, history of multiple strokes, bedbound, Diabetes Mellitus, Hypertension, Hyperlipidemia. Recent Labs: WBC 6.8, RBC 4.95, hemoglobin 15.6, hematocrit 45.5, glucose 187, POC glucose 364, alkaline phosphatase 117, albumin 2.9. Microbiology: Blood culture results 2 in progress. MRSA screen results in progress. Intrinsic factors that delay wound healing: Diabetes Mellitus, Hypoalbuminemia. Extrinsic factors that delay wound healing: Decreased mobility. Wound Assessment: 1. Left Chin: Shingles lesion, present on admission. Site has 100% yellow crusty tissue. No odor, no drainage. Periwound intact. Lesion measures 0.6 cm x 0.5 cm. Recommend: Cleanse wound with normal saline. Apply SurePrep to jc-wound. Cover with non-adhesive foam dressing, cut to size, then secure with transparent dressing (use same dressing as in wounds 2 and 3). Perform wound care daily, and as needed for dressing soiling or dislodgement. 2. Left Chin, inferior to wound 1: Shingles lesion, present on admission. Site has 90% yellow crusty tissue, 10% red tissue. No odor, no drainage. Periwound intact. Lesion measures 0.5 cm x 0.8 cm. 3. Left Chin, inferior to wound 2: Shingles lesion, present on admission. Site has 100% yellow crusty tissue. No odor, no drainage. Periwound intact. Lesion measures 0.7 cm x 1.5 cm. Recommend: Cleanse wounds with normal saline. Apply SurePrep to jc-wounds. Apply Hydrogel to wounds. Cover with non-adhesive foam dressing, cut to size, then secure with transparent dressing. Perform wound care daily, and as needed for dressing soiling or dislodgement. 4. Left Ear, [place]/Scaphoid Fossa Intersection: Shingles lesion, present on admission. Site has 100% yellow crusty tissue. No odor, no drainage. Periwound intact. Ear is edematous. Lesion measures 3.0 cm x 1.5 cm. 5. Left Ear, [place]/Scaphoid Fossa Intersection: Shingles lesion, present on admission. Site has 100% yellow crusty tissue. No odor, no drainage. Periwound intact. Ear is edematous. Lesion measures 3.0 cm x 1.5 cm. 6. Left Ear, Acoustic Meatus: Shingles lesion, present on admission. Site has 100% yellow crusty tissue. No odor, no drainage. Periwound intact. Ear is edematous. Lesion measures 1.0 cm x 1.2 cm. 7. Intersect of Left Parietal/Temporal Scalp, Superior to Ear: Multiple dry scaly lesions (probable Shingles), present on admission. No odor, no drainage. Recommend: No dressing needed. Continue to monitor site every shift. 8. Sacral/Buttocks areas: Multiple areas of scar tissue from a wound of prior unknown etiology, and blanchable erythema from IAD, present on admission. Recommend: Cleanse involved areas with mild soap and water. Pat dry. Apply moisture barrier cream to involved areas. Perform site care 4 times a day, and as needed for soiling. Also recommend: Encourage and assist patient as needed with repositioning [id number] only every 2 hours with pillow support and off-load pressure areas with pillows for pressure re-distribution. Offload, elevate and float bilateral heels with pillows. Perform skin care and monitor skin integrity Q shift. Use moisture barrier cream on buttocks and other moisture susceptible areas QID and as needed for soiling. Initiate low air-loss therapy. Addendum: 05/06/19 at 1454 by Josue Chavez RN Error. Incorrect note. Please disregard.
--- NOTE | 2019-05-06 19:24 | NUR ---
Closing Note: Provided plan of care via sbar to receiving nurse Ezekiel RN.
--- NOTE | 2019-05-06 20:00 | NUR ---
AAOX4. IN NO APPARENT DISTRESS. ON LEVOPHED AT 2 MCG/MIN. SR. BREATH SOUNDS ESSENTIALLY CLEAR. ON ROOM AIR. POX 98%. BOWEL SOUNDS (+). PULSES PALPABLE. SKIN WITH SOME WEEPING NOTED ON ARMS. NUSRAT LOWER EXTREMITIES WITH PITTING EDEMA. PADRON CATH PATENT DRAINING SCANT CLEAR DONALD URINE. FLEXISEAL WITH LIQUID STOOL NOTED. MARIO PICC LINE DRSG D/I. HEMODIALYSIS ON GOING. LEVOPHED DRIP TITRATED UP TO 4 MCG/MIN FOR LOW BP.
--- NOTE | 2019-05-06 22:00 | NUR ---
HEMODIALYSIS DONE, 2 LITERS NET OUT.
[2019-05-06] MEDS: MORPHINE 2 MG/ML INJ. SYRINGE IVP PRN (22:13)
--- NOTE | 2019-05-06 22:15 | NUR ---
LEVOPHED TITRATED TO MCG/MIN. HS CARE. STOOL OOZING OU OF RECTAL TUBE INSERTION SITE. CLEANED. JACOB-CARE, PADRON CARE, DONE. PARTIAL LINEN CHANGE. TURNED AND REPOSITIONED. ASSISTED WITH TURNING. NISHI PROC WELL. Addendum: 05/07/19 at 0311 by Ezekiel Daniels RN LEVOPHED TITRATED TO 6 MCG/MIN.
[2019-05-06] MEDS: EMOLLIENT COMBINATION NO.73 78 GM CREAM..G. TP SCH (22:28)
--- NOTE | 2019-05-06 23:45 | NUR ---
LEVOPHED TITRATED DOWN TO 4 MCG/MIN.
[2019-05-07] VITALS (24 sets, daily range): BP systolic 83–129
[2019-05-07 05:34] LABS: HEMATOCRIT 31.1 % (36-48); HEMOGLOBIN 10.4 g/dL (12.0-16.0); MEAN CORPUSCULAR HGB CONC 34 % (32-36); MONOCYTES # (AUTO) 0.7 K/uL (0.0-1.0)
[2019-05-07 05:48] LABS: BASOPHILS % (AUTO) 0.2 % (0.0-2.0); EOSINOPHILS % (AUTO) 0.3 % (0.0-4.0); LYMPHOCYTES # (AUTO) 1.4 K/uL (1.0-5.5); LYMPHOCYTES % (AUTO) 14.4 % (20.5-51.5); MEAN CORPUSCULAR HEMOGLOBIN 30 pg (27-31); MEAN CORPUSCULAR VOLUME 90 fL (79.0-98.0); NEUTROPHILS # (AUTO) 7.4 K/uL (1.8-7.7); NEUTROPHILS % (AUTO) 78.1 % (40.0-70.0); PLATELET COUNT (AUTO) 52 K/uL (130-430); RED BLOOD CELL COUNT(AUTO) 3.46 MIL/uL (4.2-6.2); RED CELL DISTRIBUTION WIDTH 15.9 % (9.0-15.0); WHITE BLOOD COUNT (AUTO) 9.5 K/uL (4.8-10.8)
[2019-05-07 05:58] LABS: ALANINE AMINOTRANSFERASE 21 U/L (12-78); ANION GAP 6 (5-15); ASPARTATE AMINOTRANSFERASE 51 U/L (10-37); CALCIUM 7.7 mg/dL (8.4-11.0); CHLORIDE 107 mmol/L (98-107); CREATININE 2.64 mg/dL (0.55-1.30); GLUCOSE 116 mg/dL (70-99); POTASSIUM 3.4 mmol/L (3.5-5.1); SODIUM SERUM 141 mmol/L (136-145); TOTAL BILIRUBIN 3.1 mg/dL (0.0-1.0); UREA NITROGEN, BLOOD 11 mg/dL (8-21)
[2019-05-07] MEDS: LEVOTHYROXINE SODIUM 0.15 MG TABLET PO SCH (06:42)
--- NOTE | 2019-05-07 07:16 | NUR ---
Opening Note: Received plan of care via sbar from endorsing nurse Ezekiel RN.
[2019-05-07] MEDS: HYDROCORTISONE ACETATE 1 SUPP (ANUSOL HC) RC SCH ×2 (09:00→21:00)
[2019-05-07] MEDS: LACTULOSE 20 GM/30 ML UDC PO SCH ×4 (09:18→21:04)
[2019-05-07] MEDS: MIDODRINE HCL 5 MG TABLET (PROAMATINE) PO SCH ×3 (09:18→21:05)
[2019-05-07] MEDS: BALSAM PERU/CASTOR OIL 60 GM OINT...G. TP SCH (09:18)
[2019-05-07] MEDS: EMOLLIENT COMBINATION NO.73 78 GM CREAM..G. TP SCH ×2 (09:19→21:05)
[2019-05-07] MEDS: metroNIDAZOLE 500 mg/NS 100 ML IV SCH ×2 (12:05→23:02)
--- NOTE | 2019-05-07 13:30 | NUR ---
Dr. Yost at bedside. Received orders for dialysis on 05/08.
--- NOTE | 2019-05-07 14:00 | NUR ---
Levophed titrated down to 2 mcg/min.
[2019-05-07] MEDS: CEFEPIME 1 GM in D5W 50 ML IV SCH (14:14)
--- NOTE | 2019-05-07 19:23 | NUR ---
Closing Note Gave plan of care to receiving nurse.
--- NOTE | 2019-05-07 20:00 | NUR ---
PM ASSESSMENT Received report from TAYLA Castro and pt care was endorsed. Pt in bed with eyes open resting comfortably. No signs of acute distress or discomfort noted. Family at bedside. VSS w/ SR seen on the monitor. Pt on RA, tolerating well with O2 sats @ 97% and even and unlabored breathing. Pt has a MARIO picc infusing NS TKO. Pt also has a R IJ cath for dialysis, SL. Paula cath note draining urine to gravity, flexiseal noted draining loose stool. Bed is locked and in lowest position, call light within reach, will cont to monitor pt.
[2019-05-07] MEDS: MORPHINE 2 MG/ML INJ. SYRINGE IVP PRN (21:06)
--- NOTE | 2019-05-07 22:10 | NUR ---
Pt in bed with eyes closed resting comfortably, no signs of acute distress or discomfort noted. Will cont to monitor pt.
[2019-05-08] VITALS (25 sets, daily range): BP systolic 86–128
--- NOTE | 2019-05-08 00:10 | NUR ---
Pt resting in bed, no signs of acute distress or discomfort noted. Pt repositioned at this time. Will cont to monitor pt.
--- NOTE | 2019-05-08 04:10 | NUR ---
Pt resting in bed with eyes closed. No signs of acute distress or discomfort noted. Pt's draw sheet, chucks, and blankets replaced at this time and jc care, knox cath care and skin care was done. Pt repositioned. Pt tolerated well, will cont to monitor.
[2019-05-08 05:36] LABS: BASOPHILS % (AUTO) 0.2 % (0.0-2.0); EOSINOPHILS % (AUTO) 0.7 % (0.0-4.0); HEMOGLOBIN 9.7 g/dL (12.0-16.0); LYMPHOCYTES # (AUTO) 1.2 K/uL (1.0-5.5); LYMPHOCYTES % (AUTO) 24.8 % (20.5-51.5); MEAN CORPUSCULAR HEMOGLOBIN 30 pg (27-31); MEAN CORPUSCULAR HGB CONC 32 % (32-36); MEAN CORPUSCULAR VOLUME 92 fL (79.0-98.0); MONOCYTES # (AUTO) 0.4 K/uL (0.0-1.0); MONOCYTES % (AUTO) 7.2 % (1.7-9.3); NEUTROPHILS # (AUTO) 3.4 K/uL (1.8-7.7); NEUTROPHILS % (AUTO) 67.1 % (40.0-70.0); RED BLOOD CELL COUNT(AUTO) 3.26 MIL/uL (4.2-6.2); RED CELL DISTRIBUTION WIDTH 16.2 % (9.0-15.0)
[2019-05-08 05:50] LABS: PLATELET COUNT (AUTO) 27 K/uL (130-430)
[2019-05-08 05:53] LABS: ALANINE AMINOTRANSFERASE 20 U/L (12-78); ALBUMIN 1.7 g/dL (3.4-4.8); ANION GAP 7 (5-15); ASPARTATE AMINOTRANSFERASE 47 U/L (10-37); CALCIUM 7.8 mg/dL (8.4-11.0); CHLORIDE 108 mmol/L (98-107); CREATININE 3.07 mg/dL (0.55-1.30); GLUCOSE 106 mg/dL (70-99); SODIUM SERUM 141 mmol/L (136-145); TOTAL BILIRUBIN 1.8 mg/dL (0.0-1.0); UREA NITROGEN, BLOOD 15 mg/dL (8-21)
[2019-05-08 05:59] LABS: POTASSIUM 2.8 mmol/L (3.5-5.1)
[2019-05-08] MEDS: LEVOTHYROXINE SODIUM 0.15 MG TABLET PO SCH (06:01)
[2019-05-08] MEDS ORDERED: POTASSIUM CHLORIDE 20 MEQ TAB.PRT.SR PO ONE (07:00)
--- NOTE | 2019-05-08 07:00 | NUR ---
ENDORSEMENT Report given to oncoming dayshift RN using SBAR format and pt care was endorsed. No signs of acute distress or discomfort noted.
--- NOTE | 2019-05-08 07:05 | NUR ---
Opening Note Received bedside report from endorsing RN for continuation of care. Received patient awake and resting in bed, no signs or symptoms of acute distress noted. Patient denies any SOB or pain. Bed locked in lowest position, bed alarm on, and call light within reach. Fall and safety precautions in place.
--- NOTE | 2019-05-08 07:42 | NUR ---
PLT [address] Huber regarding platelets. He indicated a hematology consult is not indicated as there is nothing they can do.
[2019-05-08] MEDS: MIDODRINE HCL 5 MG TABLET (PROAMATINE) PO SCH ×3 (08:42→20:13)
--- NOTE | 2019-05-08 08:42 | NUR ---
Dr. Weber at bedside examining patient. No new orders.
[2019-05-08] MEDS: HYDROCORTISONE ACETATE 1 SUPP (ANUSOL HC) RC SCH ×2 (08:43→20:14)
[2019-05-08] MEDS: BALSAM PERU/CASTOR OIL 60 GM OINT...G. TP SCH (08:43)
[2019-05-08] MEDS: EMOLLIENT COMBINATION NO.73 78 GM CREAM..G. TP SCH ×2 (08:43→20:13)
--- NOTE | 2019-05-08 08:59 | NUR ---
Dr. Huber at bedside examining patient. No new orders.
[2019-05-08] MEDS ORDERED: ALBUMIN HUMAN 25% 200 ML IV ONE (09:00)
--- NOTE | 2019-05-08 09:12 | NUR ---
Hemodialysis Hemodialysis being performed at bedside by senior energy market coordinator.
[2019-05-08] MEDS: NOREPINEPHRINE BITARTRATE 4 MG in D5W 246 ML IV PRN (09:53)
[2019-05-08] MEDS: LACTULOSE 20 GM/30 ML UDC PO SCH ×4 (09:56→20:12)
--- NOTE | 2019-05-08 10:30 | NUR ---
Dr. Mejia at bedside examining patient. New orders received.
--- NOTE | 2019-05-08 11:01 | NUR ---
Dr. Yost at bedside examining patient. New orders received.
[2019-05-08] MEDS: metroNIDAZOLE 500 mg/NS 100 ML IV SCH (12:35)
--- NOTE | 2019-05-08 14:04 | NUR ---
Family at bedside. Updated on patient status and plan of care. All questions answered clearly.
[2019-05-08] MEDS: CEFEPIME 1 GM in D5W 50 ML IV SCH (15:49)
--- NOTE | 2019-05-08 16:00 | NUR ---
Wound Care/CHG/BM Wound care performed per wound care guidelines. Photographs taken and in chart. CHG performed. Patient had large loose diarrhea BM. Bed linens changed. Patient cleaned, turned, and repositioned. No signs or symptoms of acute distress noted. Patient tolerated well with minimal discomfort.
--- NOTE | 2019-05-08 16:16 | NUR ---
Dr. Tang at bedside examining patient. New orders received.
--- NOTE | 2019-05-08 19:10 | NUR ---
Endorsement Endorsed bedside report to oncoming RN using SBAR approach for continuation of care.
--- NOTE | 2019-05-08 19:20 | NUR ---
PM ASSESSMENT Received report from keyla RN and pt care was endorsed. Pt in bed with eyes open resting comfortably. No signs of acute distress or discomfort noted. Family at bedside. VSS w/ SR seen on the monitor. Pt on RA, tolerating well with O2 sats @ 96% and even and unlabored breathing. Pt has a MARIO picc infusing NS TKO and Levophed @ 4 mcg/min. Pt also has a R IJ cath for dialysis, SL. Pt received dialysis earlier today and had 2 liters out. Paula cath note draining urine to gravity, flexiseal noted draining loose stool. Bed is locked and in lowest position, call light within reach, will cont to monitor pt.
--- NOTE | 2019-05-08 22:00 | NUR ---
Pt in bed with eyes closed resting comfortably, no signs of acute distress or discomfort noted. Pt repositioned at this time. Bed is locked and in lowest position, call light within reach, will cont to monitor pt.
[2019-05-09] VITALS (24 sets, daily range): BP systolic 97–132
[2019-05-09] MEDS ORDERED: NOREPINEPHRINE 4 MG/4 ML VIAL IV ONE (00:44)
[2019-05-09] MEDS: NOREPINEPHRINE BITARTRATE 4 MG in D5W 246 ML IV PRN ×2 (01:05→20:42)
--- NOTE | 2019-05-09 03:15 | NUR ---
Pt in bed with eyes closed resting comfortably, no signs of acute distress or discomfort noted. Pt still receiving levophed at 4 mcg/min through pt's MARIO picc. Pt tolerating medication well, will cont to monitor pt.
--- NOTE | 2019-05-09 04:45 | NUR ---
Pt cleaned and new draw sheets and chucks placed under pt at this time. Palma care, skin care, and knox cath care done. Pt tolerated well. Bed is locked and in lowest position, call light within reach, will cont to monitor pt.
[2019-05-09 05:32] LABS: BASOPHILS % (AUTO) 0.1 % (0.0-2.0); EOSINOPHILS # (AUTO) 0.1 K/uL (0.0-0.4); EOSINOPHILS % (AUTO) 0.7 % (0.0-4.0); HEMATOCRIT 29.3 % (36-48); HEMOGLOBIN 9.7 g/dL (12.0-16.0); LYMPHOCYTES % (AUTO) 20.6 % (20.5-51.5); MEAN CORPUSCULAR HEMOGLOBIN 30 pg (27-31); MEAN CORPUSCULAR HGB CONC 33 % (32-36); MEAN CORPUSCULAR VOLUME 91 fL (79.0-98.0); MONOCYTES # (AUTO) 0.8 K/uL (0.0-1.0); MONOCYTES % (AUTO) 8.1 % (1.7-9.3); NEUTROPHILS # (AUTO) 6.9 K/uL (1.8-7.7); NEUTROPHILS % (AUTO) 70.5 % (40.0-70.0); RED BLOOD CELL COUNT(AUTO) 3.23 MIL/uL (4.2-6.2); RED CELL DISTRIBUTION WIDTH 16.3 % (9.0-15.0); WHITE BLOOD COUNT (AUTO) 9.7 K/uL (4.8-10.8)
[2019-05-09 05:44] LABS: PLATELET COUNT (AUTO) 41 K/uL (130-430)
[2019-05-09 05:54] LABS: ALANINE AMINOTRANSFERASE 15 U/L (12-78); ALBUMIN 2.2 g/dL (3.4-4.8); ANION GAP 4 (5-15); ASPARTATE AMINOTRANSFERASE 46 U/L (10-37); CALCIUM 7.9 mg/dL (8.4-11.0); CHLORIDE 107 mmol/L (98-107); CREATININE 2.66 mg/dL (0.55-1.30); GLUCOSE 104 mg/dL (70-99); SODIUM SERUM 139 mmol/L (136-145); TOTAL BILIRUBIN 3.2 mg/dL (0.0-1.0); UREA NITROGEN, BLOOD 11 mg/dL (8-21)
[2019-05-09 05:56] LABS: POTASSIUM 2.9 mmol/L (3.5-5.1)
[2019-05-09] MEDS: LEVOTHYROXINE SODIUM 0.15 MG TABLET PO SCH (06:02)
--- NOTE | 2019-05-09 06:34 | NUR ---
PAGED PAGED LIONEL LOUIS AT [phone] SPOKE WITH AYDE.
[2019-05-09] MEDS ORDERED: POTASSIUM CHLORIDE 20 MEQ/PKT PACKET PO ONE ×2 (06:45→10:45)
--- NOTE | 2019-05-09 07:05 | NUR ---
ENDORSEMENT Report given to oncoming dayshift RN using SBAR format and pt care was endorsed. No signs of acute distress or discomfort noted.
[2019-05-09 07:06] LABS: HEPATITIS A AB, IgM Negative (Negative); HEPATITIS B CORE AB, IgM Negative (Negative); HEPATITIS B SURFACE AG Negative (Negative)
--- NOTE | 2019-05-09 07:10 | NUR ---
Opening Note Received bedside report from endorsing RN for continuation of care. Received patient awake and resting in bed, no signs or symptoms of acute distress noted. Patient denies any SOB or pain. RT at bedside. Bed locked in lowest position, bed alarm on, and call light within reach. Fall and safety precautions in place.
[2019-05-09] MEDS: EMOLLIENT COMBINATION NO.73 78 GM CREAM..G. TP SCH ×2 (08:29→20:33)
[2019-05-09] MEDS: LACTULOSE 20 GM/30 ML UDC PO SCH ×4 (08:29→20:32)
[2019-05-09] MEDS: HYDROCORTISONE ACETATE 1 SUPP (ANUSOL HC) RC SCH ×2 (08:30→20:34)
[2019-05-09] MEDS: BALSAM PERU/CASTOR OIL 60 GM OINT...G. TP SCH (08:30)
[2019-05-09] MEDS: MIDODRINE HCL 5 MG TABLET (PROAMATINE) PO SCH ×3 (08:30→20:32)
--- NOTE | 2019-05-09 08:31 | NUR ---
Dr. Weber at bedside examining patient. No new orders.
--- NOTE | 2019-05-09 08:46 | NUR ---
PAGED PAGED PAGED AT [phone] SPOKE GRACIE RIVERA.
--- NOTE | 2019-05-09 08:50 | NUR ---
Dr. Huber at bedside examining patient and updating patient/patient's brother on plan of care. No new orders.
--- NOTE | 2019-05-09 11:20 | NUR ---
Dr. Tang at bedside examining patient and updating patient/patient's brother on patient status and plan of care. No new orders.
--- NOTE | 2019-05-09 12:30 | NUR ---
PICC Line Dressing Change PICC Line dressing changed using aseptic technique. Hand hygiene performed prior to dressing change. Sterile gloves used during dressing change. Site covered with sterile, semi-permeable dressing and biopatch applied. Patient tolerated well.
--- NOTE | 2019-05-09 13:17 | NUR ---
Nutrition F/U RD reviewed pt's current EMR including diet Hx, physician notes, nursing notes, pertinent labs/meds/procedures, care trends and care activity. Current Diet Order: Mechanical Soft Renal Standard diet, Nepro BID x 3 days Subjective information: Pt seen resting in bed w/ family at bedside. Per family's report, pt was able to tolerate, oatmeal, eggs and fruit juice for breakfast. Nepro bottle at bedside, pt stated that she saves the Nepro and drinks it at a later time. Pt also verbalized food preferences, RD notified [facility] staff and noted in [employer]. Per Blood Donor Recruiter note 05/06/19, pt w/ wound. Modular Keenan BID is warranted. Pt agreed to Keenan when RD offered. RD also encouraged pt to increase PO intake. Current PO intake: Poor (42% average of 2 days) ESTIMATED NUTRITIONAL NEEDS CALORIES/DAY: 9423-9766 kcal/day (MSJ x 1-1.2 CBW for obesity, geriatric maintenance) PROTEIN/DAY: 77-83 gm/day (1.2-1.3 gm/kg Adj IBW for ARF, geriatric maintenance) FLUID/DAY: Per physician d/t ARF D - Suboptimal PO intakes related to lack of appetite as evidenced by pt report of nausea and poor PO intake records. (*ongoing) I - 1. Recommend Mechanical Soft Renal Standard diet w/ Nepro BID and Keenan BID. ONS and modular will provide additional 1010 kcal, 43 gm protein daily. 2. Recommend Megace to stimulate appetite. M - Monitor appetite and PO intakes w/ goal of pt meeting at least 50% of estimated nutritional needs, labs trending WNL, normal GI function, and skin integrity/wt maintenance E - High Risk: F/U within 2-3 days
--- NOTE | 2019-05-09 13:22 | NUR ---
Dietitian Recommendation 1. Recommend Mechanical Soft Renal Standard diet w/ Nepro BID and Keenan BID. ONS and modular will provide additional 1010 kcal, 43 gm protein daily. 2. Recommend Megace to stimulate appetite. Please see Nutrition F/U note for details. UABREY, RD
--- NOTE | 2019-05-09 15:04 | NUR ---
Dr. Mejia at bedside examining patient. New orders received.
--- NOTE | 2019-05-09 15:50 | NUR ---
Dr. Yost at bedside examining patient. No new orders.
--- NOTE | 2019-05-09 16:00 | NUR ---
Wound Care/CHG/BM Wound care performed per wound care guidelines. CHG performed. Patient had small soft BM. Bed linens changed. Patient cleaned, turned, and repositioned. No signs or symptoms of acute distress noted. Patient tolerated well with minimal discomfort.
[2019-05-09] MEDS: CEFEPIME 1 GM in D5W 50 ML IV SCH (17:19)
--- NOTE | 2019-05-09 19:12 | NUR ---
Endorsement Endorsed bedside report to oncoming RN using SBAR approach for continuation of care.
--- NOTE | 2019-05-09 19:25 | NUR ---
PM SHIFT ASSESSMENT Pt is alert and oriented. Pt is on RA, O2 above 95%. SR noted on monitor. Paula catheter and Flexi seal draining to gravity. PICC line to MARIO with TKO and Levophed infusing. Dialysis catheter in place to right subclavian. Family at bedside. Safety precautions in place, call light within reach. Will continue to monitor.
[2019-05-10] VITALS (24 sets, daily range): BP systolic 93–124
[2019-05-10] MEDS: LEVOTHYROXINE SODIUM 0.15 MG TABLET PO SCH (06:12)
[2019-05-10 06:17] LABS: CREATININE 3.06 mg/dL (0.55-1.30); GLUCOSE 120 mg/dL (70-99); POTASSIUM 3.4 mmol/L (3.5-5.1); UREA NITROGEN, BLOOD 12 mg/dL (8-21)
[2019-05-10 06:27] LABS: ANION GAP 3 (5-15); CHLORIDE 106 mmol/L (98-107); SODIUM SERUM 135 mmol/L (136-145)
[2019-05-10 06:34] LABS: CALCIUM 8.2 mg/dL (8.4-11.0)
[2019-05-10 07:20] LABS: BASOPHILS % (AUTO) 0.3 % (0.0-2.0); EOSINOPHILS # (AUTO) 0.1 K/uL (0.0-0.4); EOSINOPHILS % (AUTO) 0.8 % (0.0-4.0); HEMATOCRIT 30.8 % (36-48); HEMOGLOBIN 10.3 g/dL (12.0-16.0); LYMPHOCYTES # (AUTO) 1.5 K/uL (1.0-5.5); LYMPHOCYTES % (AUTO) 13.1 % (20.5-51.5); MEAN CORPUSCULAR HEMOGLOBIN 30 pg (27-31); MEAN CORPUSCULAR HGB CONC 33 % (32-36); MEAN CORPUSCULAR VOLUME 91 fL (79.0-98.0); MONOCYTES # (AUTO) 0.9 K/uL (0.0-1.0); MONOCYTES % (AUTO) 7.9 % (1.7-9.3); NEUTROPHILS # (AUTO) 8.8 K/uL (1.8-7.7); NEUTROPHILS % (AUTO) 77.9 % (40.0-70.0); PLATELET COUNT (AUTO) 52 K/uL (130-430); RED BLOOD CELL COUNT(AUTO) 3.39 MIL/uL (4.2-6.2); RED CELL DISTRIBUTION WIDTH 15.9 % (9.0-15.0); WHITE BLOOD COUNT (AUTO) 11.3 K/uL (4.8-10.8)
--- NOTE | 2019-05-10 07:24 | NUR ---
ENDORSEMENT Pt care endorsed to TAYLA Shaw using nursing SBAR.
--- NOTE | 2019-05-10 07:25 | NUR ---
Opening Note Received bedside report from endorsing RN for continuation of care. Received patient awake and resting in bed, no signs or symptoms of acute distress noted. Patient denies any SOB or pain. Educated patient on plan of care and use of call light. Bed locked in lowest position, bed alarm on, and call light within reach. Fall and safety precautions in place.
[2019-05-10] MEDS ORDERED: ALBUMIN HUMAN 25% 200 ML IV ONE (08:00)
[2019-05-10] MEDS: EMOLLIENT COMBINATION NO.73 78 GM CREAM..G. TP SCH ×2 (08:10→20:59)
[2019-05-10] MEDS: LACTULOSE 20 GM/30 ML UDC PO SCH ×4 (08:10→20:58)
[2019-05-10] MEDS: MIDODRINE HCL 5 MG TABLET (PROAMATINE) PO SCH ×3 (08:10→20:58)
[2019-05-10] MEDS: BALSAM PERU/CASTOR OIL 60 GM OINT...G. TP SCH (08:11)
--- NOTE | 2019-05-10 08:30 | NUR ---
Hemodialysis Hemodialysis being performed at bedside by communications program manager Pito.
--- NOTE | 2019-05-10 08:41 | NUR ---
Patient's brother Ad at bedside. Updated on patient status. Patient eating breakfast.
[2019-05-10] MEDS: HYDROCORTISONE ACETATE 1 SUPP (ANUSOL HC) RC SCH ×2 (09:00→20:58)
--- NOTE | 2019-05-10 09:02 | NUR ---
Dr. Huber in to see patient. No new orders.
[2019-05-10] MEDS ORDERED: HEPARIN SODIUM,PORCINE 5000 UNITS/ML VIAL IVP ONE (09:15)
--- NOTE | 2019-05-10 14:25 | NUR ---
WOUND RE-EVALUATION: Late note for 142 secondary to patient care. Patient received in a Mike Bed with an Isoflex NOÉ mattress with low air-loss therapy, awake, alert, oriented. Patient is unable to turn in bed independently. Asaf Score is a 15. Microbiology: Blood culture results 2 negative. Intrinsic factors that delay wound healing: Diabetes Mellitus, Hypoalbuminemia. Extrinsic factors that delay wound healing: Decreased mobility. Wound Assessment: 1. Left lateral forearm: Skin tear. Skin tear site has 50% red tissue, 50% yellow tissue with epidermal budding. No odor, scant serous drainage. Periwound intact. Surrounding tissue has ecchymosis. Site measures 7.0 cm x 6.5 cm. Recommend: Cleanse site with normal saline. Apply SurePrep to palma-tear area. Cover with oil emulsion dressing, then non-adhesive foam dressing. Wrap with jocelynn wrap. Perform skin tear care daily, and as needed for dressing soiling or dislodgement. 2. Right lateral forearm: Skin tear. Visible tissue is pink. No odor, scant serous drainage. Periwound intact. Surrounding tissue has ecchymosis. Site measures 0.6 cm x 1.8 cm. Recommend: Cleanse site with normal saline. Apply SurePrep to palma-tear area. Cover with oil emulsion dressing, then non-adhesive foam dressing. Wrap with jocelynn wrap. Perform skin tear care daily, and as needed for dressing soiling or dislodgement. 3. Left medial foot/first metatarsal head: Area of blanchable erythema, present on admission. Recommend continue: No dressing needed. Continue to monitor site every shift. Offload site at all times. 4. Left medial foot/first metatarsal head, inferior to site 2: Open area of dry flaky skin. Not a wound. Recommend continue: Cleanse feet with mild soap and water. Pat dry. Apply Eucerin cream to bilateral feet. Perform site care twice a day for dry, flaky skin. 5. Left dorsal foot: Closed bulla, white in color. No odor, no drainage. Recommend continue: No dressing needed. Continue to monitor site every shift. 6. Bilateral feet: Dry, flaky skin, present on admission. Recommend: Cleanse feet with mild soap and water. Pat dry. Apply Eucerin cream to bilateral feet. Perform site care twice a day for dry, flaky skin. 7. Left outer posterior hip: Skin tear on non-bony area. Skin tear site has 95% white tissue, 5% dark pink tissue. No odor, small serous drainage. Periwound intact. Site measures 1.4 cm x 2.2 cm. Recommend: Cleanse site with normal saline. Apply Calmoseptine cream to palma-tear area. Cover with alginate dressing, then secure with foam dressing. Perform wound care daily, and as needed for dressing soiling or dislodgement. 8. Left proximal posterior thigh: IAD with short associated skin damage. Site has 100% red tissue. No odor, small serous drainage. Periwound intact. Site measures 1.3 cm x 0.8 cm. Recommend: Cleanse site with normal saline. Dry. Apply Calmoseptine cream to area. Cover with alginate dressing, then foam dressing, secure with transparent dressings or Jocelynn wrap. Perform site care daily, and as needed for dressing soiling or dislodgement. 9. Bilateral upper extremities: 3+ pitting edema, weeping moderate amount of serous fluid. 10. Bilateral lower extremities: 4+ pitting edema, weeping small amount of serous fluid. Recommend: Cleanse extremities with mild soap and water. Pat dry. Cover extremities with inter-dry AG cloth. Wrap with absorbent pads. Change inter-dry AG cloth and absorbent pads daily, and as needed for soiling. Elevate extremities at all times. 11. Palma-Anal/Perineal areas: Erythema from IAD. Recommend: Cleanse site with mild soap and water. Pat dry. Apply Calmoseptine cream to involved areas QID and as needed for soiling. Also recommend: Encourage and assist patient as needed with repositioning [id number] only every 2 hours with pillow support and off-load pressure areas with pillows for pressure re-distribution. Offload, elevate and float bilateral heels with one pillow lengthwise under each extremity at all times. Perform skin care and monitor skin integrity Q shift. Apply Calmoseptine cream to buttocks and other moisture susceptible areas QID and as needed for soiling. Maintain patient on low air-loss therapy.
--- NOTE | 2019-05-10 14:30 | NUR ---
Wound Care/CHG/BM Wound care performed per wound care guidelines with boss miner Josue. CHG performed. Patient had small loose BM. Bed linens changed. Patient cleaned, turned, and repositioned. No signs or symptoms of acute distress noted. Patient tolerated well with minimal discomfort.
--- NOTE | 2019-05-10 15:20 | NUR ---
Dr. Mejia at bedside examining patient. No new orders.
[2019-05-10] MEDS: CEFEPIME 1 GM in D5W 50 ML IV SCH (15:36)
[2019-05-10] MEDS: NOREPINEPHRINE BITARTRATE 4 MG in D5W 246 ML IV PRN (15:37)
--- NOTE | 2019-05-10 16:20 | NUR ---
HCP ROVING MACHINE OPERATOR MAXINE SPENCEJKED ME TO [facility] AWAITING FOR A BED ASSIGNMENT. ACLS TRANSPO WAS PUT ON WILL CALL. MAXINE TEL NO [phone].
--- NOTE | 2019-05-10 16:32 | NUR ---
Dr. Yost at bedside examining patient. No new orders.
--- NOTE | 2019-05-10 19:08 | NUR ---
Endorsement Endorsed bedside report to oncoming RN using SBAR approach for continuation of care.
--- NOTE | 2019-05-10 20:00 | NUR ---
AAOX4. IN NO APPARENT DISTRESS. ON ROOM AIR. POX 97%. BREATH SOUNDS CLEAR. BOWEL SOUNDS ACTIVE. EXTREMITIES WITH EDEMA. PULSES PALPABLE. SKIN W/D. COLOR SATISFACTORY. HOB UP TO COMFORT. SIDE RAILS UP. CALL LIGHTS WITHIN REACH. SR. FLEXISEAL IN PLACE WITH SOFT BROWN STOOL NOTED. ON LEVOPHED DRIP AT 4 MCG/MIN. MARIO PICC LINE DRSG D/I. FAMILY AT BEDSIDE VISITING.
--- NOTE | 2019-05-10 22:00 | NUR ---
HS CARE. STOOL OOZING OUT OF ANUS INSPITE OF FLEXISEAL. CLEANED. JACOB-CARE, BACK CARE, PADRON CARE, SKIN CARE DONE. PARTIAL LINEN CHANGE. ASSISTS WITH TURNING. NISHI PROC WELL.
[2019-05-11] VITALS (23 sets, daily range): BP systolic 91–122
--- NOTE | 2019-05-11 | NUR ---
DOZES ON AND OFF. VSS. DENIES PAIN, DISTRESS, SOB.
--- NOTE | 2019-05-11 02:00 | NUR ---
ASLEEP. TURNED AND REPOSITIONED.
--- NOTE | 2019-05-11 04:00 | NUR ---
SLEPT FOR LONG PERIODS 0F TIME. NO DISTRESS NOTED. VSS. TURNED AND REPOSITIONED.
--- NOTE | 2019-05-11 06:00 | NUR ---
DIGI-SHIELD/ FLEXISEAL BAG CHANGED, 1000 CC OUT. UO 75 CC. NO COMPLAINTS AT THIS TIME. REMAINS IN GUARDED CONDITION.
[2019-05-11] MEDS: LEVOTHYROXINE SODIUM 0.15 MG TABLET PO SCH (06:34)
--- NOTE | 2019-05-11 07:30 | NUR ---
Opening Note: Received plan of care via sbar from endorsing nurse Ezekiel RN. Completed patient round.
[2019-05-11] MEDS: HYDROCORTISONE ACETATE 1 SUPP (ANUSOL HC) RC SCH ×2 (09:00→21:09)
[2019-05-11] MEDS: MIDODRINE HCL 5 MG TABLET (PROAMATINE) PO SCH ×3 (09:18→21:09)
[2019-05-11] MEDS: LACTULOSE 20 GM/30 ML UDC PO SCH ×4 (09:18→21:09)
[2019-05-11] MEDS: EMOLLIENT COMBINATION NO.73 78 GM CREAM..G. TP SCH ×2 (09:19→21:10)
[2019-05-11] MEDS: BALSAM PERU/CASTOR OIL 60 GM OINT...G. TP SCH (09:19)
--- NOTE | 2019-05-11 09:50 | NUR ---
Dr. Chen at bedside. Reported Potassium 3.4. Received orders for 20 meq K PO once liquid.
--- NOTE | 2019-05-11 10:04 | NUR ---
Received call from [facility] sarha Arnett. They are currently working on getting ICU beds at [facility] or [facility] ([place]). No eta provided.
[2019-05-11] MEDS ORDERED: POTASSIUM CHLORIDE 20 MEQ/PKT PACKET PO ONE (10:15)
--- NOTE | 2019-05-11 13:30 | NUR ---
Received call from [facility] transplant spoke with Dori who requested general information about the patient. Per Dori there is still the vetting process, bed availability, and insurance that need to be checked.
--- NOTE | 2019-05-11 13:45 | NUR ---
Called [facility] transplant spoke with Sayra who advised that the patient still needs to be screened for liver transplant. They need the social work professor report from social media senior associate.
[2019-05-11] MEDS: NOREPINEPHRINE BITARTRATE 4 MG in D5W 246 ML IV PRN (14:03)
--- NOTE | 2019-05-11 19:16 | NUR ---
Closing Note Gave plan of care to receiving nurse Ezekiel via sbar.
--- NOTE | 2019-05-11 20:00 | NUR ---
AA0X4. IN NO APPARENT DISTRESS. ON LEVOPHED AT 2MCG/MIN. BREATH SOUNDS CLEAR. ON ROOM AIR. BOWEL SOUNDS ACTIVE. PULSES PALPABLE. SKIN W/D. COLOR SATISFACTORY. HOB UP TO COMFORT. SIDE RAILS UP X3. CALL LIGHTS WITHIN REACH. SR. MARIO PICC LINE DRSG D/I. RIGHT IJ DIALYSIS CATH DRSG D/I. PADRON CATH PATENT DRAINING CLEAR DONALD URINE TO GRAVITY. FAMILY AT BEDSIDE VISITING. DR MCGOWAN HERE, SEEN PT. UPDATED ON STATUS. NO NEW ORDERS GIVEN.
--- NOTE | 2019-05-11 22:00 | NUR ---
HS CARE. STOOL OOZING FROM ANUS INSPITE OF FLEXISEAL/ DIGI-SHIELD. CLEANED. JACOB-CARE, PADRON CARE, BACK CARE DONE. Z-GUARD, VENELEX AND EUCERINE CREAM APPLIED TO, PERINEUM, GROIN , AND ERYTHEMATOUS AREAS, SKIN CARE RENDERED. SOME EXCORIATION NOTED. ASSISTS WITH TURNING. NISHI PROC WELL.
[2019-05-12] VITALS (24 sets, daily range): BP systolic 89–134
--- NOTE | 2019-05-12 | NUR ---
DOZES ON AND OFF. VSS.
--- NOTE | 2019-05-12 02:00 | NUR ---
SOUNDLY ASLEEP. NO DISTRESS NOTED.
--- NOTE | 2019-05-12 04:00 | NUR ---
SLEPT INTERMITTENTLY. VSS. TURNED Q2 HRS.
--- NOTE | 2019-05-12 06:00 | NUR ---
SLEPT FOR LONG PERIODS OF TIME. AM CARE. STOOL OOZING AROUND FLEXISEAL/ DIGI-SHIELD, CLEANED. JACOB-CARE, PADRON CARE, SKIN CARE RENDERED. PARTIAL LINEN CHANGE DONE. ASSISTS WITH TURNING. NISHI PROC WELL.
[2019-05-12] MEDS: LEVOTHYROXINE SODIUM 0.15 MG TABLET PO SCH (06:20)
--- NOTE | 2019-05-12 07:30 | NUR ---
Opening Note Received plan of care via sbar from endorsing nurse Ezekiel RN.
[2019-05-12 07:40] LABS: ALANINE AMINOTRANSFERASE 18 U/L (12-78); ALBUMIN 1.8 g/dL (3.4-4.8); ANION GAP 4 (5-15); ASPARTATE AMINOTRANSFERASE 42 U/L (10-37); CHLORIDE 105 mmol/L (98-107); CREATININE 3.54 mg/dL (0.55-1.30); GLUCOSE 121 mg/dL (70-99); POTASSIUM 3.1 mmol/L (3.5-5.1); SODIUM SERUM 134 mmol/L (136-145); TOTAL BILIRUBIN 2.3 mg/dL (0.0-1.0); UREA NITROGEN, BLOOD 21 mg/dL (8-21)
[2019-05-12 08:04] LABS: BASOPHILS % (AUTO) 0.6 % (0.0-2.0); EOSINOPHILS % (AUTO) 0.6 % (0.0-4.0); HEMATOCRIT 24.6 % (36-48); HEMOGLOBIN 8.2 g/dL (12.0-16.0); LYMPHOCYTES # (AUTO) 0.9 K/uL (1.0-5.5); LYMPHOCYTES % (AUTO) 11.3 % (20.5-51.5); MEAN CORPUSCULAR HEMOGLOBIN 31 pg (27-31); MEAN CORPUSCULAR HGB CONC 33 % (32-36); MEAN CORPUSCULAR VOLUME 92 fL (79.0-98.0); MONOCYTES # (AUTO) 0.6 K/uL (0.0-1.0); NEUTROPHILS # (AUTO) 6.4 K/uL (1.8-7.7); NEUTROPHILS % (AUTO) 80.5 % (40.0-70.0); RED BLOOD CELL COUNT(AUTO) 2.68 MIL/uL (4.2-6.2); RED CELL DISTRIBUTION WIDTH 16.5 % (9.0-15.0); WHITE BLOOD COUNT (AUTO) 7.9 K/uL (4.8-10.8)
--- NOTE | 2019-05-12 08:42 | NUR ---
PAGED DR. LAMBERT PER NURSE SPOKE TO REID DIALED [phone]
[2019-05-12 08:53] LABS: CALCIUM 7.9 mg/dL (8.4-11.0)
[2019-05-12] MEDS: LACTULOSE 20 GM/30 ML UDC PO SCH ×4 (08:59→20:39)
[2019-05-12] MEDS: MIDODRINE HCL 5 MG TABLET (PROAMATINE) PO SCH ×3 (08:59→20:40)
[2019-05-12] MEDS: HYDROCORTISONE ACETATE 1 SUPP (ANUSOL HC) RC SCH ×2 (09:00→20:39)
[2019-05-12] MEDS: BALSAM PERU/CASTOR OIL 60 GM OINT...G. TP SCH (09:01)
[2019-05-12] MEDS: EMOLLIENT COMBINATION NO.73 78 GM CREAM..G. TP SCH ×2 (09:01→20:41)
--- NOTE | 2019-05-12 09:10 | NUR ---
Critical Value Dr. Chen at bedside. Reported K at 3.1, critical value for platelet, and discussed hypotension. Received orders for PO K 40 MQ once and Albumin 25% IV once.
[2019-05-12] MEDS ORDERED: ALBUMIN HUMAN 25% 50 ML IV ONE (10:00)
[2019-05-12] MEDS ORDERED: POTASSIUM CHLORIDE 20 MEQ/PKT PACKET PO ONE (10:00)
[2019-05-12 11:04] LABS: PLATELET COUNT (AUTO) 43 K/uL (130-430)
--- NOTE | 2019-05-12 13:23 | NUR ---
Discharge Planning: DCP received a call from ICU, patient was accepted to [facility]. I made nurse aware patient has HCP, but i could make packet with Rad CD and leave a message for HCP VLAD Cueto regarding ambulance and for it to be put on Will Call. DCP took packet to ICU nurse station.
--- NOTE | 2019-05-12 13:45 | NUR ---
Called Dr. Hughes to report creatinine. Received orders for hemodialysis.
--- NOTE | 2019-05-12 18:00 | NUR ---
Nutrition F/U RD reviewed pt's current EMR including diet Hx, physician notes, nursing notes, pertinent labs/meds/procedures, care trends and care activity. Current Diet Order: 2 gm Na, renal, mechanical soft diet w/ Nepro BID, Keenan BID x1 days Subjective information: Pt seen resting in bed w/ family at bedside. Pt reported good appetite, tolerating diet well. Pt reported that she also tries to drink Nepro ONS and enjoys them. Per RN, pt ate well at breakfast and lunch today (75%); awaiting transfer to [facility] for higher level of care. Current PO intake: 25% average x6 meals ESTIMATED NUTRITIONAL NEEDS CALORIES/DAY: 1238-6607 kcal/day (MSJ x 1-1.2 CBW for obesity, geriatric maintenance) PROTEIN/DAY: 77-83 gm/day (1.2-1.3 gm/kg Adj IBW for ARF, geriatric maintenance) FLUID/DAY: Per physician d/t ARF D - Suboptimal PO intakes related to lack of appetite as evidenced by pt report of nausea and poor PO intake records. (*ongoing) I - 1. Recommend continuing 2 gm Na, renal, mechanical soft diet w/ Nepro BID, Keenan BID. ONS and modular will provide additional 1010 kcal, 43 gm protein daily. 2. Recommend Megace to stimulate appetite. M - Monitor appetite and PO intakes w/ goal of pt meeting at least 50% of estimated nutritional needs, labs trending WNL, normal GI function, and skin integrity/wt maintenance E - High Risk: F/U within 2-3 days
--- NOTE | 2019-05-12 20:15 | NUR ---
Reposition & Turning patient off loading with pillows on two hour schedule kept clean also dry as needed .
--- NOTE | 2019-05-12 20:45 | NUR ---
PAD[facility] CATHETER PATENT FREE FLOW OF YELLOW DONALD COLOR URINE OBSERVED COMFORT MEASURES IMPLEMENTED FAMILY @ THE Bedside call ba with patient awake alert .
--- NOTE | 2019-05-12 21:30 | NUR ---
Eucerin Intensive Repair cream applied to Redness on jc Buttocks Rectal Tube in place kept clean also dry as needed .
--- NOTE | 2019-05-12 22:40 | NUR ---
SBAR REPORT GIVEN TO Hemanth from [facility] , [phone] OPTION # 2 . REGARDING POSSIBLE TRANSFER .
[2019-05-13] VITALS (7 sets, daily range): BP systolic 105–113
[2019-05-13] MEDS ORDERED: NOREPINEPHRINE 4 MG/4 ML VIAL IV ONE (00:53)
[2019-05-13] MEDS: NOREPINEPHRINE BITARTRATE 4 MG in D5W 246 ML IV PRN (01:53)
--- NOTE | 2019-05-13 02:22 | NUR ---
LEVOPHED 6 MCG / MINUTE BP 112/68 HR 73 Patient awake on and off family at the bedside comfort measures implemented position change tolerated .
--- NOTE | 2019-05-13 04:36 | NUR ---
Patient Resting this hour HOB elevated on Room air 02 SAT 95 % chest movement symmetrical family @ the bedside with patient .
--- NOTE | 2019-05-13 05:45 | NUR ---
BED BATH GIVEN LININ CHANGE , FLEXICEAL BAG CHANGE ORANGE LININ APPLIED PATIENT REDY FOR TRANSFER FAMILY HERE assist @ the bedside .
[2019-05-13 05:49] LABS: BASOPHILS # (AUTO) 0.1 K/uL (0.0-0.2); BASOPHILS % (AUTO) 0.7 % (0.0-2.0); EOSINOPHILS # (AUTO) 0.1 K/uL (0.0-0.4); EOSINOPHILS % (AUTO) 0.6 % (0.0-4.0); HEMATOCRIT 26.4 % (36-48); HEMOGLOBIN 8.6 g/dL (12.0-16.0); LYMPHOCYTES # (AUTO) 1.9 K/uL (1.0-5.5); LYMPHOCYTES % (AUTO) 17.3 % (20.5-51.5); MEAN CORPUSCULAR HEMOGLOBIN 30 pg (27-31); MEAN CORPUSCULAR HGB CONC 33 % (32-36); MEAN CORPUSCULAR VOLUME 93 fL (79.0-98.0); MONOCYTES % (AUTO) 8.8 % (1.7-9.3); NEUTROPHILS # (AUTO) 8.1 K/uL (1.8-7.7); NEUTROPHILS % (AUTO) 72.6 % (40.0-70.0); PLATELET COUNT (AUTO) 66 K/uL (130-430); RED BLOOD CELL COUNT(AUTO) 2.85 MIL/uL (4.2-6.2); RED CELL DISTRIBUTION WIDTH 16.1 % (9.0-15.0); WHITE BLOOD COUNT (AUTO) 11.2 K/uL (4.8-10.8)
--- NOTE | 2019-05-13 05:50 | NUR ---
[facility] (patient placement center) call with current vital signs as requested. T:98.1, HR: 90, BP: 106/62, O2 Sat: 99% RA R: 20 rhythm: sinus rhythm, Levophed 6mcg/min. [facility] ambulance ACLS team here to transport patient.
[2019-05-13 06:08] LABS: ALANINE AMINOTRANSFERASE 18 U/L (12-78); ANION GAP 4 (5-15); ASPARTATE AMINOTRANSFERASE 41 U/L (10-37); CHLORIDE 104 mmol/L (98-107); CREATININE 2.96 mg/dL (0.55-1.30); GLUCOSE 104 mg/dL (70-99); POTASSIUM 3.5 mmol/L (3.5-5.1); SODIUM SERUM 134 mmol/L (136-145); TOTAL BILIRUBIN 3.3 mg/dL (0.0-1.0); UREA NITROGEN, BLOOD 18 mg/dL (8-21)
[2019-05-13 06:34] LABS: CALCIUM 7.9 mg/dL (8.4-11.0)
== END 2019-05-13 06:00 | disposition short-term general hospital (02) | DRG 871 ==
LOC: SED 14:36 → SIC 18:01
PROVIDERS: ADMIT Internal Medicine Hospice and Palliative Medicine; ATTEND Internal Medicine Hospice and Palliative Medicine
PROC: 30233K1 Transfusion of Nonautologous Frozen Plasma into Peripheral Vein, Percutaneous Approach (ICD-10-PCS; principal; 2019-05-02)
PROC: 02HV33Z Insertion of Infusion Device into Superior Vena Cava, Percutaneous Approach (ICD-10-PCS; 2019-05-02)
PROC: B548ZZA Ultrasonography of Superior Vena Cava, Guidance (ICD-10-PCS; 2019-05-02)
PROC: 5A1D70Z Performance of Urinary Filtration, Intermittent, Less than 6 Hours Per Day (ICD-10-PCS; 2019-05-02)
PROC: 30233N1 Transfusion of Nonautologous Red Blood Cells into Peripheral Vein, Percutaneous Approach (ICD-10-PCS; 2019-05-03)
PROC: 5A1D70Z Performance of Urinary Filtration, Intermittent, Less than 6 Hours Per Day (ICD-10-PCS; 2019-05-04)
PROC: 5A1D70Z Performance of Urinary Filtration, Intermittent, Less than 6 Hours Per Day (ICD-10-PCS; 2019-05-06)
PROC: 5A1D70Z Performance of Urinary Filtration, Intermittent, Less than 6 Hours Per Day (ICD-10-PCS; 2019-05-08)
PROC: 5A1D70Z Performance of Urinary Filtration, Intermittent, Less than 6 Hours Per Day (ICD-10-PCS; 2019-05-10)
PROC: 5A1D70Z Performance of Urinary Filtration, Intermittent, Less than 6 Hours Per Day (ICD-10-PCS; 2019-05-12)
DX: A41.9 Sepsis, unspecified organism (principal); R65.21 Severe sepsis with septic shock; K65.2 Spontaneous bacterial peritonitis; K76.7 Hepatorenal syndrome; N18.6 End stage renal disease; N17.0 Acute kidney failure with tubular necrosis; D68.9 Coagulation defect, unspecified; N39.0 Urinary tract infection, site not specified; K62.5 Hemorrhage of anus and rectum; E87.5 Hyperkalemia; E03.9 Hypothyroidism, unspecified; K72.90 Hepatic failure, unspecified without coma; B96.5 Pseudomonas (aeruginosa) (mallei) (pseudomallei) as the cause of diseases classified elsewhere; D64.9 Anemia, unspecified; D69.59 Other secondary thrombocytopenia; I48.91 Unspecified atrial fibrillation; D69.6 Thrombocytopenia, unspecified; E66.9 Obesity, unspecified; E88.09 Other disorders of plasma-protein metabolism, not elsewhere classified; K70.31 Alcoholic cirrhosis of liver with ascites; R63.3 Feeding difficulties; Z79.899 Other long term (current) drug therapy; Z88.0 Allergy status to penicillin; Z90.49 Acquired absence of other specified parts of digestive tract; Z68.33 Body mass index [BMI] 33.0-33.9, adult
CPT/HCPCS: 36415; 71045; 76700-TC; 80048; 80053; 80074; 81000-TC; 82140-TC; 82272; 82533; 83605; 83880; 84484; 85007; 85025; 85027; 85610-TC; 85730-TC; 86886; 86900; 86901; 86920; 87040-TC; 87081; 87086; 87186-TC; 90935; 90937; 93005; 93306; 93970; 94640; 96374; 96375; 99291; C1751; J0692; J0696; J1644; J1815; J1940; J1956; J2270; J3430; J3480; J3490; J7030; J7050; J7060; J7613; P9021; P9046; P9059